=== PATIENT | female | born 1945 | race Caucasian/White ===

== ENCOUNTER → 2016-05-05 | Outpatient (CLI) | payer OTHER ==
[~2016-05-05] MED LIST: ACET-1138 PO; ALPR0.25 PO; ASPEC325 PO; CINN1CAP2 PO; FERR1TAB23 PO; FERR324T PO; HYDR25TA4 PO; LISI10TA PO; METF-384 PO; NSNN50; PARO20TA PO; POTA99TA PO; ROSU5TAB PO; SITA25TA PO; TRAM-10 PO; WARF1TAB PO; [UNRECOGNIZED DRUG - CODE] PO; lasix; mutivitamin PO
[2016-05-05 11:41] LABS: BASO % 0.4 %; BASO ABS # 0.04 K/uL (0-0.2); COMPLETE YES; EOS % 0.3 %; HEMATOCRIT 31.9 % (37-47); IG% 0.3 %; LYMPH % 13.1 %; LYMPH ABS # 1.47 K/uL (1.2-3.4); MEAN CELL VOLUME 84.2 fL (80-100); MEAN CORPUSCULAR HEMOGLOBIN 28.2 pg (25-34); MEAN CORPUSCULAR HGB CONC 33.5 g/dl (32-36); MEAN PLATELET VOLUME 9.9 fL (7.4-10.4); MONO % 9.5 %; NEUT % 76.4 %; PLATELET COUNT 323 K/uL (130-400); RED BLOOD COUNT 3.79 M/uL (4.2-5.4); WHITE BLOOD COUNT 11.24 K/uL (4.8-10.8)
[2016-05-05 11:55] LABS: SYNOVIAL FLUID APPEARANCE TURBID; SYNOVIAL FLUID COLOR YELLOW; SYNOVIAL FLUID MONONUC RELAT 3.5 %; SYNOVIAL FLUID POLYNUC RELAT 96.5 %
== END | disposition home or self-care (01) ==
LOC: C.LABBC 09:20
PROVIDERS: ATTEND Orthopaedic Surgery Sports Medicine
DX: T84.7XXA Infection and inflammatory reaction due to other internal orthopedic prosthetic devices, implants and grafts, initial encounter (principal); M25.562 Pain in left knee; Y83.1 Surgical operation with implant of artificial internal device as the cause of abnormal reaction of the patient, or of later complication, without mention of misadventure at the time of the procedure

== ENCOUNTER 2016-05-06 15:34 | Inpatient (IN) | payer OTHER ==
[~2016-05-06] VITALS: Ht 149.9 cm; Wt 70.9 kg
[~2016-05-06 15:34] MED LIST changes: -ACET-1138 PO; -ASPEC325 PO; -TRAM-10 PO; -[UNRECOGNIZED DRUG - CODE] PO
[2016-05-06] MEDS ORDERED: SODIUM CHLORIDE 0.9% 1000ML 1,000 ML IV SCH (16:08)
[2016-05-06] MEDS ORDERED: ZOLPIDEM TARTRATE 5 MG TAB PO PRN (16:15)
[2016-05-06] MEDS ORDERED: METOCLOPRAMIDE HCL INJ 5 MG/ML 2 ML VIAL IV PRN (16:15)
[2016-05-06] MEDS ORDERED: ALUMINUM/MAGNESIUM SUSP 30 ML UDC PO PRN (16:15)
[2016-05-06] MEDS ORDERED: MAGNESIUM HYDROXIDE SUSP 30 ML UDC PO PRN (16:15)
[2016-05-06] MEDS ORDERED: ONDANSETRON INJ 2 MG/ML 2 ML VIAL IV PRN (16:15)
[2016-05-06] MEDS ORDERED: ALPRAZOLAM 0.25 MG TAB PO PRN (16:15)
[2016-05-06] MEDS ORDERED: FERROUS SULFATE 325 MG TAB PO SCH (18:00)
[2016-05-06] MEDS ORDERED: FERROUS GLUCONATE 324 MG TAB PO SCH (18:00)
--- NOTE | 2016-05-06 19:06 | DIAGNOSTIC IMAGING REPORT ---
CHEST 2 VIEWS ROUTINE HISTORY: Pre-op COMPARISON: Chest 09/19/2012. FINDINGS: The lungs are clear. Cardiac silhouette is normal in size. No pleural effusions. No pneumothorax. IMPRESSION: No acute process. Electronically signed by: Avtar Farr M.D. 05/06/2016 7:04 PM Dictated Date/Time: 05/06/2016 7:03 PM
[2016-05-06 19:13] LABS: HEMATOCRIT 30.9 % (37-47); MEAN CELL VOLUME 82.6 fL (80-100); MEAN CORPUSCULAR HEMOGLOBIN 27.8 pg (25-34); MEAN CORPUSCULAR HGB CONC 33.7 g/dl (32-36); PLATELET COUNT 340 K/uL (130-400); RED BLOOD COUNT 3.74 M/uL (4.2-5.4); WHITE BLOOD COUNT 10.62 K/uL (4.8-10.8)
[2016-05-06 19:30] LABS: BLOOD UREA NITROGEN 23 mg/dl (7-18); BUN/CREATININE RATIO 30.5 (10-20); CALCIUM 9.5 mg/dl (8.5-10.1); CARBON DIOXIDE 30 mmol/L (21-32); CHLORIDE 91 mmol/L (98-107); CREATININE 0.74 mg/dl (0.60-1.20); GLUCOSE 159 mg/dl (70-99); POTASSIUM 3.5 mmol/L (3.5-5.1); SODIUM 133 mmol/L (136-145)
[2016-05-06 19:33] LABS: INR 0.9 (0.9-1.1); PROTHROMBIN TIME (PATIENT) 9.9 SECONDS (9.0-12.0)
[2016-05-06] MEDS ORDERED: GLUCOSE 40% GEL 15 GM TUBE PO PRN (20:45)
[2016-05-06] MEDS ORDERED: GLUCOSE 10 TABS/TUBE PO PRN (20:45)
[2016-05-06] MEDS ORDERED: DEXTROSE 50% 50 ML SYR IV PRN (20:45)
[2016-05-06] MEDS ORDERED: GLUCAGON FOR INJ 1 MG VIAL SQ PRN (20:45)
[2016-05-06] MEDS ORDERED: INSULIN HUMAN REGULAR SC SCH (21:00)
[2016-05-06] MEDS: DOCUSATE SODIUM 100 MG CAP PO SCH (21:37)
[2016-05-06 21:58] VITALS: BP 130/83; PULSE 96; TEMP 37.4; O2SAT 94; Ht 149.9 cm; Wt 70.9 kg
--- NOTE | 2016-05-06 22:03 | HISTORY & PHYSICAL EXAMINATION ---
DATE OF ADMISSION: 05/06/2016 CHIEF COMPLAINT: Acute knee pain after knee replacement surgery. HISTORY OF PRESENT ILLNESS: The patient is a 70-year-old female, from [facility], who is status post a left total knee replacement done on 10/29/2012. She has done well from this, has not had any problems at all. She works a regular job. On Monday morning, she just awoke with an acute onset of left knee pain and discomfort. There was no trauma. She has had to resort to using a walker to get around, for the first time. She also noticed some warmth and felt she had a bit of a fever. On Monday, she called in our office and we had seen her yesterday morning. We aspirated her knee. Cultures are growing Staph aureus. Interestingly, the crystal analysis showed some gout crystals as well. Of note, the patient did recently have dental work just last week. She did take prophylactic antibiotics beforehand. Once again, her knee has been functioning fine, not had any problems until just Monday. PAST MEDICAL HISTORY: 1. Diabetes x8+ years. 2. Hypertension. 3. Elevated cholesterol. 4. Obesity. 5. Anxiety. 6. Osteoarthritis. PAST SURGICAL HISTORY: Includes: 1. Tubal ligation. 2. Throat surgeries for sleep apnea. 3. Left total knee replacement done on 10/29/2012. ALLERGIES: SULFA AND LATEX. CURRENT MEDICINES: 1. Metformin. 2. Mobic. 3. Unspecified medicine. 4. Crestor. 5. Lisinopril. 6. Hydrochlorothiazide 7. Paxil. 8. Xanax. 9. Lasix. SOCIAL HISTORY: A 70-year-old female. She is from [place]. She is . She does take care of a disabled child. FAMILY HISTORY: Significant for heart disease, diabetes, blood clots, uterine cancer. REVIEW OF SYSTEMS: Review of systems is significant for diabetes for about 10 years or so. She does not recall how long. Denies any history of DVT or PE. No chest pain or shortness of breath. No cardiac disease. PHYSICAL EXAMINATION: GENERAL: Reveals a pleasant, jovial elderly female. She looks to be quite healthy. HEENT: Benign. NECK: Supple. No lymphadenopathy. LUNGS: Clear to auscultation. HEART: Regular rate and rhythm. ABDOMEN: Soft, nontender, nondistended. EXTREMITIES: Grossly neurovascularly intact, except as follows: Examination of the left knee and leg reveals a well-healed incision. There may be just a [id number] effusion. She can do a straight leg raise. Range of motion is 0-90 degrees. She is just tender to palpate around her knee. There is no instability. No pain with hip motion. X-RAYS: X-rays from our office were reviewed. It shows a left cemented posterior stabilized right total knee arthroplasty. Components looked to be in good position. No signs of problems. No signs of lucency. No signs of wear. LABORATORIES: Laboratory results reveal a white cell count of 10.62, which is normal. She does have anemia with a hemoglobin of 10.4, hematocrit of 30.9. The sed rate is 74. C-reactive protein 30. Her knee aspirate revealed 36,000 white cells with 96% polys and a 3%-4% mononuclear cells. Gram stain shows some gram-positive cocci. Cultures are significant for staph aureus. Synovasure testing is abnormal, suggestive of infection. ASSESSMENT: A 70-year-old female, now 3-1/2 years out from a left total knee replacement with acute onset of pain, discomfort and swelling, consistent with septic arthritis. Interestingly, she did have some gout crystals, which is one of the reasons we waited until the final culture results came back before washing her knee out, but it appears that there is clearly some degree of infection. This looks to be acute infection. She has not had any problems in the past and the implant looked well fixed. PLAN: The patient has been admitted to the hospital. She has had a medical workup and everything looks pretty much in order. We will have to take her to the operating room and do an irrigation and debridement, extensive synovectomy, polyethylene exchange. Seemingly, the implants are well fixed. We will do a polyethylene exchange and placed her on 6 weeks of IV antibiotics. Obviously, if the components are loose, we will have to place an antibiotic spacer. The risks and benefits of this procedure were explained to the patient, including, but not limited to, DVT, PE, , infection, neurological injury, vascular injury, bleeding problem, pain, limited range of motion, stiffness, failure to relieve symptoms, incomplete relief of symptoms, need for further surgery in the future, need for resection arthroplasty. The patient understands and desires to proceed. Informed consent was obtained. We will make her n.p.o. after midnight. We will begin DVT prophylaxis, including thigh-high TEDs and SCDs. GRETTA
[2016-05-06] MEDS ORDERED: VANCOMYCIN INJ 1,000 MG in SODIUM CHLORIDE 0.9% 250ML 250 ML IV STA (22:34)
[2016-05-06 23:17] VITALS: BP 111/73; PULSE 112; TEMP 38.4; O2SAT 96
[2016-05-07] VITALS (9 sets, daily range): BP systolic 116–164; BP diastolic 67–89; PULSE 90–110; TEMP 36.8–38; O2SAT 87–100
[2016-05-07] MEDS ORDERED: NURSING VERBAL MED ORDER ONE ×3 (00:30→20:45)
[2016-05-07] MEDS ORDERED: MoRPHine SULFATE 2 MG/ML CARP IV PRN ×2 (00:30→09:45)
[2016-05-07] MEDS ORDERED: NURSING DECISION MEDICATION ORDER SCH (01:15)
[2016-05-07] MEDS ORDERED: CEFAZOLIN 2000 MG/60 ML D5W 60 ML IV SCH (06:00)
[2016-05-07] MEDS ORDERED: CEFAZOLIN IV 2,000 MG/60 ML D5W IV ONE (06:00)
[2016-05-07] MEDS ORDERED: INSULIN HUMAN REGULAR SC SCH ×2 (06:00→12:00)
[2016-05-07] MEDS ORDERED: PROPOFOL IV EMULSION 10 MG/ML 20 ML VIAL IV ONE (06:52)
[2016-05-07] MEDS ORDERED: MIDAZOLAM HCL 1 MG/ML 2ML VIAL ONE (06:52)
[2016-05-07] MEDS ORDERED: ONDANSETRON INJ 2 MG/ML 2 ML VIAL ONE (06:52)
[2016-05-07] MEDS ORDERED: FENTANYL CITRATE INJ 50 MCG/1 ML 2 ML VIAL ONE (06:52)
[2016-05-07] MEDS ORDERED: GLYCOPYRROLATE INJ 0.2 MG/ML VIAL ONE (06:52)
[2016-05-07] MEDS ORDERED: LIDOCAINE HCL 2% 2 ML VIAL (20MG/ML) ONE (06:52)
[2016-05-07] MEDS ORDERED: ROCURONIUM BROMIDE 10 MG/ML 5 ML VIAL ONE (06:52)
[2016-05-07] MEDS ORDERED: NEOSTIGMINE METHYLSULFATE 5 MG/5 ML SYR ONE (06:52)
[2016-05-07] MEDS: DOCUSATE SODIUM 100 MG CAP PO SCH ×2 (07:14→20:59)
[2016-05-07] MEDS: PANTOprazole SOD 40 MG TAB PO SCH (07:15)
[2016-05-07] MEDS: ROSUVASTATIN CALCIUM 10 MG TAB PO SCH (07:15)
[2016-05-07] MEDS: HYDROCHLOROTHIAZIDE 25 MG TAB PO SCH (07:15)
[2016-05-07] MEDS: SITAGLIPTIN 25 MG TAB PO SCH (07:15)
[2016-05-07] MEDS: PAROXETINE 20 MG TAB PO SCH (07:15)
--- NOTE | 2016-05-07 07:22 | History & Physical Bridge Note ---
H&P Re-Evaluation Bridge Note: I have examined the patient, reviewed the History & Physical and in the interval since the performance of the History & Physical I have noted the following changes of clinical significance: No changes noted
[2016-05-07] MEDS ORDERED: EpHEDrine SULFATE INJ 50 MG/ML AMP IV PRN (07:30)
[2016-05-07] MEDS ORDERED: ATROPINE SULFATE 0.1 MG/ML 5ML SYR IV PRN (07:30)
[2016-05-07] MEDS ORDERED: ONDANSETRON INJ 2 MG/ML 2 ML VIAL IV PRN ×2 (07:30→09:45)
[2016-05-07] MEDS ORDERED: PHENYLEPHRINE 100MCG/ML 5ML SYR IV PRN (07:30)
[2016-05-07] MEDS ORDERED: HYDROmorphone INJ 2 MG/ML SYR/VIAL IV PRN (07:30)
[2016-05-07] MEDS ORDERED: MoRPHine SULFATE PF 1 MG/ML 10 ML AMP/VIAL ONE (07:49)
[2016-05-07] MEDS ORDERED: METOCLOPRAMIDE HCL INJ 5 MG/ML 2 ML VIAL ONE (08:04)
[2016-05-07] MEDS ORDERED: BACITRACIN 50000 UNIT VIAL IR ONE (08:35)
[2016-05-07] MEDS ORDERED: POVIDONE-IODINE OP SOLN 30 ML BTL TOP ONE (08:41)
[2016-05-07] MEDS ORDERED: ORM MISCELLANEOUS MED XX ONE (08:42)
[2016-05-07] MEDS ORDERED: BUPIVACAINE 0.25% 30 ML VIAL INJ ONE (09:09)
[2016-05-07] MEDS ORDERED: LABETALOL HCL IV 5 MG/ML 20ML ONE (09:10)
--- NOTE | 2016-05-07 09:39 | [facility] Post Operative Brief Note ---
Immediate Operative Summary Operative Date May 07, 2016. Pre-Operative Diagnosis Acute Left Knee Septic Arthritis after Total Knee Replacement Post-Operative Diagnosis Same Procedure(s) Performed Left total knee poly exchange, incision and drainage Surgeon Dr. Dioni Koenig Hand Washer Surgeon(s) None Estimated Blood Loss 50 mL Findings Septic TKR. Well-fixed components Fluids (cc crystalloids) 750 cc Specimens Microbiology #1: Left Knee Tissue/Swab Sent to lab STAT and 0820 for Routine C/S, Gram Stain, Anerobic/Aerobic, Fungal Permanent Specimens A: Explanted hardware, left knee Drains HMV Left Knee Complication(s) None Disposition Recovery Room / PACU
[2016-05-07] MEDS ORDERED: ALUMINUM/MAGNESIUM/SIMETH (MAALOX MAX) 30 ML UDC PO PRN (09:45)
[2016-05-07] MEDS ORDERED: DiphenhydrAMINE HCL 50 MG/ML VIAL IV PRN (09:45)
[2016-05-07] MEDS ORDERED: OXYCODONE HCL IR 5 MG TAB (IMMEDIATE RELEASE) PO PRN (09:45)
[2016-05-07] MEDS ORDERED: METOCLOPRAMIDE HCL INJ 5 MG/ML 2 ML VIAL IV PRN (09:45)
[2016-05-07] MEDS ORDERED: MAGNESIUM HYDROXIDE SUSP 30 ML UDC PO PRN (09:45)
[2016-05-07] MEDS ORDERED: BISACODYL 10 MG SUPP PR PRN (09:45)
[2016-05-07] MEDS ORDERED: ZOLPIDEM TARTRATE 5 MG TAB PO PRN (09:45)
[2016-05-07] MEDS ORDERED: VANCOMYCIN INJ 1,100 MG in SODIUM CHLORIDE 0.9% 250ML 250 ML IV SCH (11:00)
[2016-05-07] MEDS ORDERED: CEFAZOLIN SOD 1 GM VIAL ONE (11:17)
--- NOTE | 2016-05-07 11:17 | Anesthesiology Progress Note ---
Anesthesia Post Op Note Date & Time May 07, 2016 at 11:17 Vital Signs Pain Intensity: 0.0 Vital Signs Past 12 Hours Date Time Temp Pulse Resp B/P Pulse Ox O2 Delivery O2 Flow Rate FiO2 05/07/16 11:05 104 18 164/89 96 Nasal Cannula 2.0 05/07/16 10:35 100 Nasal Cannula 05/07/16 10:35 100 Nasal Cannula 2.0 05/07/16 10:30 37.2 103 20 154/78 98 Nasal Cannula 2.0 05/07/16 10:20 37.5 97 14 142/78 100 Nasal Cannula 2 05/07/16 10:10 100 14 154/90 100 Nasal Cannula 2 05/07/16 10:00 97 14 126/81 98 Nasal Cannula 2 05/07/16 09:50 100 16 139/78 98 Nasal Cannula 2 05/07/16 09:43 37.1 97 16 139/83 97 Nasal Cannula 2 05/07/16 07:07 37.9 110 20 146/74 97 Room Air 05/06/16 23:30 Room Air Notes Mental Status: alert / awake / arousable, participated in evaluation Pt Amnestic to Procedure: Yes Nausea / Vomiting: adequately controlled Pain: adequately controlled Airway Patency, RR, SpO2: stable & adequate BP & HR: stable & adequate Hydration State: stable & adequate Anesthetic Complications: no major complications apparent
[2016-05-07] MEDS: KETOROLAC TROMETHAMINE 15 MG/ML VIAL IV. SCH ×3 (11:26→22:33)
[2016-05-07] MEDS: SODIUM CHLORIDE 0.9% 1000ML 1,000 ML IV SCH ×2 (11:26→20:19)
[2016-05-07] MEDS ORDERED: VANCOMYCIN CONSULT ACTIVE PRN (12:30)
--- NOTE | 2016-05-07 12:36 | Pharmacy Progress Note ---
Pharmacy Antibiotic Consult Date of Service: May 07, 2016. Pharmacy Dosing Scope Pharmacy is consulted to initiate Vancomycin IV dosing therapy, order appropriate labs and adjust drug dose/frequency. Subjective The patient is a 70 year old female admitted on May 06, 2016 at 18:14. Objective Height (Feet): 4 Height (Inches): 11.00 Weight (Kilograms): 70.900 Lab Results (24hrs): Laboratory Tests Test 05/06/16 19:04 BUN/Creatinine Ratio 30.5 Blood Urea Nitrogen 23 mg/dl Creatinine 0.74 mg/dl White Blood Count 10.62 K/uL Micro Results: Item Value Date Time Gram Stain - Final Resulted 05/05/16 0934 Joint Fluid/Space (Synovial) Knee Left Gram Stain Received 05/07/16 0815 Tissue Knee Left Pending Fungal Smear Received 05/07/16 0815 Tissue Knee Left Pending OR AER/JULISA CULT Preliminary 05/07/16-1003 Organism 1 STAPHYLOCOCCUS AUREUS QUANITY MODERATE SENS SENSITIVITY TO FOLLOW 1. STAPHYLOCOCCUS AUREUS Target Route Dose RX AB Cost M.I.C. IQ ------ ----- ------ -- ------ -------- - ------ TRIMET/SULFA S <=0.5/ 9.5 * OXACILLIN S <=0.25 VANCOMYCIN S 2 ERYTHROMYCIN S <=0.5 TETRACYCLINE S <=4 CLINDAMYCIN S <=0.5 DAPTOMYCIN S <=0.5 Assessment & Plan Assessment * 70 y/o F with L knee septic arthritis on empiric IV Vancomycin. Hx L TKA 10/29. She underwent L total knee poly exchange, incision & drainage earlier this AM on 05/07/16. L synovial fluid culture from 05/05/16 (prior to admission) resulted with MSSA. Tissue cultures from today pending. ID has been consulted today (they have not seen the patient yet). Dr. Koenig was informed of outpatient culture growing MSSA. Patient also does not have any risk factors for MRSA. However, he does not want to de-escalate Vancomycin at this time. He is deferring antibiotic management to ID. * Patient with good renal function that appears to be at baseline. Most recent sCr = 0.74 mg/dL with estimated CrCl ~96 mL/min. Estimated pharmacokinetic parameters: * Ke ~0.084/hr * T1/2 ~8.2 hrs * Vd ~49.6 L * Patient received Vancomycin 1000mg (~15mg/kg) IV x 1 as a single dose on 05/06 @ 2301. Therefore will not give another loading dose at this time. Will promptly initiate maintenance regimen. Plan * Initiate Vancomycin 1100mg (~16mg/kg) IV q10 * Goal Vancomycin trough 15-20 mcg/mL * Trough level ordered for 05/08 @ 0630 (prior to the 3rd dose and therefore not reflective of steady state) Pharmacy will continue to follow and will adjust dose/frequency as necessary. Thank you
[2016-05-07] MEDS: FERROUS GLUCONATE 324 MG TAB PO SCH ×2 (12:54→17:25)
[2016-05-07] MEDS: ACETAMINOPHEN 500 MG TAB PO SCH ×2 (12:54→22:32)
--- NOTE | 2016-05-07 15:20 | Medical Consult ---
Consultation Date of Consultation: May 07, 2016. Attending Physician: Dioni Koenig M.D. Reason for Consultation: 6 weeks of Abx for septic TKA History of Present Illness 70-year-old female with history of diabetes mellitus, is status post remote left TKA. She was in usual state of health until 1 day prior to admission when she noted the sudden onset pain, swelling, and erythema of her left knee. This was associated with fever and chills. She sought Dr. Koenig and knee was aspirated and shows both Staph aureus as well as gout crystals. She has now been admitted and undergone surgical debridement with poly exchange. Operative cultures are pending. Currently being treated with vancomycin and rifampin. Feeling much better postoperatively with decrease in temperature, and control of knee pain. Past Medical/Surgical History PAST MEDICAL HISTORY: 1. Diabetes x8+ years. 2. Hypertension. 3. Elevated cholesterol. 4. Obesity. 5. Anxiety. 6. Osteoarthritis. PAST SURGICAL HISTORY: Includes: 1. Tubal ligation. 2. Throat surgeries for sleep apnea. 3. Left total knee replacement done on 10/29/2012. Family History Noncontributory Social History Smoking Status: Unknown if Ever Smoked Allergies Coded Allergies: Latex (Verified Allergy, Unknown, tongue got numb, itchy all over, 05/06/16 ) Sulfa Antibiotics (Verified Allergy, Unknown, "SULFA DRUGS": RED RASH, ) Current Inpatient Medications Current Inpatient Medications Medications (Trade) Dose Ordered Sig/Marisol Route Start Time Stop Time Status Last Admin Dose Admin Diphenhydramine HCl (Benadryl Cap) 25 mg Q8 PRN PO 05/06/16 16:15 06/05/16 16:14 Diphenhydramine HCl (Benadryl Inj) 25 mg Q8 PRN IV 05/06/16 16:15 06/05/16 16:14 Metoclopramide HCl (Reglan Inj) 10 mg Q6H PRN IV 05/06/16 16:15 06/05/16 16:14 Ondansetron HCl (Zofran Inj) 4 mg Q6H PRN IV 05/06/16 16:15 06/05/16 16:14 Al Hydroxide/Mg Hydroxide (Maalox Susp) 30 ml Q6H PRN PO 05/06/16 16:15 06/05/16 16:14 Docusate Sodium (coLACE CAP) 100 mg BID PO 05/06/16 21:00 06/05/16 20:59 05/06/16 21:37 100 MG Pantoprazole Sodium (Protonix Tab) 40 mg QAM PO 05/07/16 09:00 06/06/16 08:59 Magnesium Hydroxide (Milk Of Magnesia Susp) 30 ml Q6H PRN PO 05/06/16 16:15 06/05/16 16:14 Alprazolam (Xanax Tab) 0.25 mg DAILY PRN PO 05/06/16 16:15 06/05/16 16:14 Hydrochlorothiazide (Hydrochlorothiazide Tab) 25 mg DAILY PO 05/07/16 09:00 06/06/16 08:59 Paroxetine HCl (pAXil TAB) 20 mg DAILY PO 05/07/16 09:00 06/06/16 08:59 Rosuvastatin Calcium (Crestor Tab) 10 mg DAILY PO 05/07/16 09:00 06/06/16 08:59 Sitagliptin Phosphate (Januvia Tab) 25 mg DAILY PO 05/07/16 09:00 06/06/16 08:59 Glucose (Glucose 40% Gel) 15-30 GRAMS 15 GRAMS... UD PRN PO 05/06/16 20:45 06/05/16 20:44 Glucose (Glucose Chew Tab) 4-8 Tablets 4 Tabl... UD PRN PO 05/06/16 20:45 06/05/16 20:44 Dextrose (Dextrose 50% 50ML Syringe) 25-50ML OF 50% DW IV FOR... UD PRN IV 05/06/16 20:45 06/05/16 20:44 Glucagon (Glucagon Inj) 1 mg UD PRN SQ 05/06/16 20:45 06/05/16 20:44 Morphine Sulfate 2 mg 2 mg Q2H PRN IV 05/07/16 00:30 05/21/16 00:29 Sodium Chloride (Nss 1000ml) 1,000 ml @ 100 mls/hr Q10H IV 05/07/16 09:39 05/08/16 09:38 05/07/16 11:26 100 MLS/HR Oxycodone HCl (Roxicodone Immediate Rel Tab) 5 mg Q4H PRN PO 05/07/16 09:45 05/21/16 09:44 Acetaminophen (Tylenol Tab) 1,000 mg Q8 PO 05/07/16 14:00 06/06/16 13:59 05/07/16 12:54 1,000 MG Bisacodyl (Dulcolax Supp) 10 mg DAILY PRN AK 05/07/16 09:45 06/06/16 09:44 Zolpidem Tartrate (Ambien Tab) 5 mg HSZ PRN PO 05/07/16 09:45 06/06/16 09:44 Multivitamins (Multivitamin Tab) 1 tab QAM PO 05/08/16 09:00 06/07/16 08:59 Ferrous Gluconate (Ferrous Gluconate Tab) 324 mg TIDM PO 05/07/16 12:30 06/06/16 12:29 05/07/16 12:54 324 MG Aspirin (Ecotrin Tab) 325 mg BID PO 05/07/16 21:00 06/06/16 20:59 Tapentadol (Nucynta Er Tab) 50 mg Q12 PO 05/07/16 21:00 06/06/16 20:59 Ketorolac Tromethamine 15 mg 15 mg Q6H IV. 05/07/16 11:00 05/09/16 10:59 05/07/16 11:26 15 MG Vancomycin HCl/ Sodium Chloride (Vancomycin Inj/ Nss 250ml) 272 ml @ 125 mls/hr Q10H IV 05/07/16 11:00 06/06/16 10:59 05/07/16 11:25 125 MLS/HR Insulin Human Regular (novoLIN-R) SLIDING SCALE ACHS SC 05/07/16 12:00 06/06/16 11:59 05/07/16 12:58 2 UNITS Vancomycin HCl (Consult) 1 ea UD PRN N/A 05/07/16 12:30 06/06/16 12:29 Rifampin (Rifadin Cap) 150 mg BID PO 05/07/16 21:00 06/18/16 20:59 Review of Systems Constitutional: + chills, + fever Eyes: No problem reported ENT: No problem reported Respiratory: No problem reported Cardiovascular: No problem reported Abdomen: No problem reported Musculoskeletal: + joint pain, + swelling Genitourinary - Female: No problem reported Neurologic: No problem reported Psychiatric: No problem reported Endocrine: No problem reported Hematologic / Lymphatic: No problem reported Integumentary: No problem reported Allergic / Immunologic: No problem reported Physical Exam Date Time Temp Pulse Resp B/P Pulse Ox O2 Delivery O2 Flow Rate FiO2 05/07/16 13:58 37.1 104 16 116/68 99 Nasal Cannula 2.0 05/07/16 12:35 36.9 107 18 146/69 96 Nasal Cannula 2.0 05/07/16 11:34 38.0 95 16 120/87 97 Nasal Cannula 2.0 05/07/16 11:05 104 18 164/89 96 Nasal Cannula 2.0 05/07/16 10:35 100 Nasal Cannula 05/07/16 10:35 100 Nasal Cannula 2.0 05/07/16 10:30 37.2 103 20 154/78 98 Nasal Cannula 2.0 05/07/16 10:20 37.5 97 14 142/78 100 Nasal Cannula 2 05/07/16 10:10 100 14 154/90 100 Nasal Cannula 2 05/07/16 10:00 97 14 126/81 98 Nasal Cannula 2 05/07/16 09:50 100 16 139/78 98 Nasal Cannula 2 05/07/16 09:43 37.1 97 16 139/83 97 Nasal Cannula 2 05/07/16 07:07 37.9 110 20 146/74 97 Room Air 05/06/16 23:30 Room Air 05/06/16 23:17 38.4 112 15 111/73 96 Room Air 05/06/16 21:58 37.4 96 16 130/83 94 Room Air General Appearance: WD/WN, no apparent distress Head: normocephalic, atraumatic Eyes: normal inspection, EOMI, sclerae normal ENT: normal ENT inspection, hearing grossly normal, pharynx normal Neck: supple, no adenopathy, thyroid normal, trachea midline Respiratory/Chest: chest non-tender, lungs clear, normal breath sounds, no respiratory distress Cardiovascular: regular rate, rhythm, no gallop, no murmur Abdomen/GI: normal bowel sounds, non tender, soft, no organomegaly Back: normal inspection, no CVA tenderness Extremities/Musculoskelatal: no calf tenderness, normal capillary refill Neurologic/Psych: alert, normal mood/affect, oriented x 3 Skin: normal color, no rash, + pertinent finding (surical dressing intact left leg) Lymphatic: no adenopathy Laboratory Results Date/Time Source Procedure Growth Status 05/07/16 08:15 Tissue Knee Left Fungal Smear Pending Received 05/07/16 08:15 Tissue Knee Left Fungal Culture Pending Received 05/07/16 08:15 Tissue Knee Left Gram Stain Pending Received 05/07/16 08:15 Tissue Knee Left Bacterial Culture Pending Received Last 24 Hours Test 05/06/16 19:04 05/07/16 06:19 05/07/16 09:55 05/07/16 11:41 White Blood Count 10.62 K/uL Red Blood Count 3.74 M/uL Hemoglobin 10.4 g/dL Hematocrit 30.9 % Mean Corpuscular Volume 82.6 fL Mean Corpuscular Hemoglobin 27.8 pg Mean Corpuscular Hemoglobin Concent 33.7 g/dl RDW Standard Deviation 40.4 fL RDW Coefficient of Variation 13.2 % Platelet Count 340 K/uL Mean Platelet Volume 9.0 fL Prothrombin Time 9.9 SECONDS Prothromb Time International Ratio 0.9 Sodium Level 133 mmol/L Potassium Level 3.5 mmol/L Chloride Level 91 mmol/L Carbon Dioxide Level 30 mmol/L Anion Gap 12.0 mmol/L Blood Urea Nitrogen 23 mg/dl Creatinine 0.74 mg/dl Estimated GFR () 96.5 Estimated GFR (Non- 83.2 BUN/Creatinine Ratio 30.5 Random Glucose 159 mg/dl Calcium Level 9.5 mg/dl Hepatitis C Antibody Screen NEG Bedside Glucose 160 mg/dl 156 mg/dl 184 mg/dl Assessment & Plan 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 Have changed vancomycin to cefazolin for now, and would continue rifampin. Will likely change to once-daily daptomycin or ceftriaxone to allow easier outpatient therapy. Will need 6 weeks IV RX, likely followed by lifelong suppressive therapy. Will follow.
[2016-05-07] MEDS: CEFAZOLIN IV 2,000 MG in DEXTROSE 5% 50ML 50 ML IV SCH ×2 (16:21→23:41)
[2016-05-07] MEDS: INSULIN ASPART 100 UNITS/ML 3 ML PEN SC SCH ×2 (17:15→20:58)
[2016-05-07] MEDS: DiphenhydrAMINE HCL 50 MG/ML VIAL IV PRN ×2 (18:32→19:05)
--- NOTE | 2016-05-07 19:33 | Progress Note ---
Subjective Date of Service: May 07, 2016. Subjective Pt evaluation today including: conversation w/ patient, physical exam, chart review, lab review, review of inpatient medication list asked to see in regards to DM management. chart reviewed. labs reviewed. current sugars reviewed. she notes at home she takes metformin and januvia, fasting sugars usually ~100, checks 2hr postprandial - usually 130 range. last A1c ~6.7. just had one checked last week but hasn't gotten most up to date results yet Review of Systems ros otherwise negative except for as above Objective Vital Signs Date Time Temp Pulse Resp B/P Pulse Ox O2 Delivery O2 Flow Rate FiO2 05/07/16 15:15 Room Air 05/07/16 15:00 36.8 90 18 137/67 94 Room Air 05/07/16 13:58 37.1 104 16 116/68 99 Nasal Cannula 2.0 05/07/16 12:35 36.9 107 18 146/69 96 Nasal Cannula 2.0 05/07/16 12:35 36.9 107 16 146/69 96 Nasal Cannula 2.0 05/07/16 11:34 38.0 95 16 120/87 97 Nasal Cannula 2.0 05/07/16 11:05 104 18 164/89 96 Nasal Cannula 2.0 05/07/16 11:05 104 16 164/89 96 Nasal Cannula 2.0 05/07/16 10:35 100 Nasal Cannula 05/07/16 10:35 100 Nasal Cannula 2.0 05/07/16 10:30 37.2 103 20 154/78 98 Nasal Cannula 2.0 05/07/16 10:20 37.5 97 14 142/78 100 Nasal Cannula 2 05/07/16 10:10 100 14 154/90 100 Nasal Cannula 2 05/07/16 10:00 97 14 126/81 98 Nasal Cannula 2 05/07/16 09:50 100 16 139/78 98 Nasal Cannula 2 05/07/16 09:43 37.1 97 16 139/83 97 Nasal Cannula 2 05/07/16 07:07 37.9 110 20 146/74 97 Room Air 05/06/16 23:30 Room Air 05/06/16 23:17 38.4 112 15 111/73 96 Room Air 05/06/16 21:58 37.4 96 16 130/83 94 Room Air Physical Exam General Appearance: no apparent distress Eyes: EOMI ENT: hearing grossly normal Neck: trachea midline Respiratory/Chest: no respiratory distress, no accessory muscle use Extremities: normal range of motion Neurologic/Psychiatric: 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, alert, normal mood/affect Skin: normal color, warm/dry Laboratory Results Last 24 Hours Test 05/07/16 06:19 05/07/16 09:55 05/07/16 11:41 05/07/16 17:00 Bedside Glucose 160 mg/dl 156 mg/dl 184 mg/dl 137 mg/dl Assessment and Plan DM2 -appearing overall well controlled, and today's sugars inpt appear well controlled for risk -on januvia and metformin at home - ortho has ordered januvia - will continue this for now, follow overall status, as long as clear no volume status issues, likely resume metformin tomorrow - continue to follow sugars closely, start sliding scale supplemental w goal 140-180. ask for records for most recent A1c since just drawn last week. suspect overall good degree of control, however.
[2016-05-07] MEDS: ASPIRIN 325 MG ECTAB PO SCH (20:58)
[2016-05-07] MEDS: TAPENTADOL ER 50 MG TABCR PO SCH (20:59)
[2016-05-07] MEDS: RIFAMPIN 150 MG CAP PO SCH (20:59)
[2016-05-07] MEDS ORDERED: DOCUSATE SODIUM 100 MG CAP PO SCH (21:00)
[2016-05-07] MEDS ORDERED: BENZOCAINE 20% (ORAJEL) 11.9 GM TUBE MT PRN (21:15)
[2016-05-08 03:43] VITALS: BP 155/71; PULSE 91; TEMP 36.9; O2SAT 99
[2016-05-08] MEDS: ACETAMINOPHEN 500 MG TAB PO SCH ×3 (05:52→21:32)
[2016-05-08] MEDS: KETOROLAC TROMETHAMINE 15 MG/ML VIAL IV. SCH ×4 (05:53→22:30)
[2016-05-08] MEDS: SODIUM CHLORIDE 0.9% 1000ML 1,000 ML IV SCH (05:58)
[2016-05-08] MEDS ORDERED: VANCOMYCIN TROUGH ONE (06:30)
[2016-05-08 06:41] LABS: HEMATOCRIT 25.7 % (37-47); MEAN CELL VOLUME 82.9 fL (80-100); MEAN CORPUSCULAR HEMOGLOBIN 27.4 pg (25-34); MEAN CORPUSCULAR HGB CONC 33.1 g/dl (32-36); MEAN PLATELET VOLUME 8.6 fL (7.4-10.4); PLATELET COUNT 322 K/uL (130-400); WHITE BLOOD COUNT 6.34 K/uL (4.8-10.8)
[2016-05-08 07:08] VITALS: BP 136/80; PULSE 88; TEMP 36.8; O2SAT 100
[2016-05-08 07:16] LABS: BUN/CREATININE RATIO 19.2 (10-20); CALCIUM 8.4 mg/dl (8.5-10.1); CREATININE 0.66 mg/dl (0.60-1.20); POTASSIUM 3.4 mmol/L (3.5-5.1)
[2016-05-08] MEDS: CEFAZOLIN IV 2,000 MG in DEXTROSE 5% 50ML 50 ML IV SCH ×2 (07:42→16:41)
--- NOTE | 2016-05-08 07:54 | Progress Note ---
Subjective Date of Service: May 08, 2016. Subjective Pt evaluation today including: conversation w/ patient, physical exam, chart review, lab review, review of inpatient medication list feeling ok overall. no lightheaded/weak, no dizzy, no sob. was worried about Hgb being lower than yesterday but no notable blood loss of significance Review of Systems Respiratory: No shortness of breath Cardiac: No chest pain ros otherwise negative except for as above Objective Vital Signs Date Time Temp Pulse Resp B/P Pulse Ox O2 Delivery O2 Flow Rate FiO2 05/08/16 07:08 36.8 88 17 136/80 100 Nasal Cannula 2.0 05/08/16 03:43 36.9 91 16 155/71 99 Room Air 05/07/16 23:40 Nasal Cannula 2.0 05/07/16 23:05 37.1 104 16 136/75 87 Room Air 05/07/16 15:15 Room Air 05/07/16 15:00 36.8 90 18 137/67 94 Room Air 05/07/16 13:58 37.1 104 16 116/68 99 Nasal Cannula 2.0 05/07/16 12:35 36.9 107 18 146/69 96 Nasal Cannula 2.0 05/07/16 12:35 36.9 107 16 146/69 96 Nasal Cannula 2.0 05/07/16 11:34 38.0 95 16 120/87 97 Nasal Cannula 2.0 05/07/16 11:05 104 18 164/89 96 Nasal Cannula 2.0 05/07/16 11:05 104 16 164/89 96 Nasal Cannula 2.0 05/07/16 10:35 100 Nasal Cannula 05/07/16 10:35 100 Nasal Cannula 2.0 05/07/16 10:30 37.2 103 20 154/78 98 Nasal Cannula 2.0 05/07/16 10:20 37.5 97 14 142/78 100 Nasal Cannula 2 05/07/16 10:10 100 14 154/90 100 Nasal Cannula 2 05/07/16 10:00 97 14 126/81 98 Nasal Cannula 2 05/07/16 09:50 100 16 139/78 98 Nasal Cannula 2 05/07/16 09:43 37.1 97 16 139/83 97 Nasal Cannula 2 Physical Exam General Appearance: no apparent distress Eyes: EOMI ENT: hearing grossly normal Neck: trachea midline Respiratory/Chest: no respiratory distress, no accessory muscle use 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, alert, normal mood/affect Skin: normal color, warm/dry Laboratory Results Last 24 Hours Test 05/07/16 09:55 05/07/16 11:41 05/07/16 17:00 05/07/16 20:41 Bedside Glucose 156 mg/dl 184 mg/dl 137 mg/dl 168 mg/dl Test 05/08/16 06:30 05/08/16 07:43 White Blood Count 6.34 K/uL Red Blood Count 3.10 M/uL Hemoglobin 8.5 g/dL Hematocrit 25.7 % Mean Corpuscular Volume 82.9 fL Mean Corpuscular Hemoglobin 27.4 pg Mean Corpuscular Hemoglobin Concent 33.1 g/dl RDW Standard Deviation 41.4 fL RDW Coefficient of Variation 13.6 % Platelet Count 322 K/uL Mean Platelet Volume 8.6 fL Sodium Level 139 mmol/L Potassium Level 3.4 mmol/L Chloride Level 101 mmol/L Carbon Dioxide Level 30 mmol/L Anion Gap 8.0 mmol/L Blood Urea Nitrogen 13 mg/dl Creatinine 0.66 mg/dl Est Creatinine Clear Calc Drug Dose 69.9 ml/min Estimated GFR () 105.2 Estimated GFR (Non- 90.8 BUN/Creatinine Ratio 19.2 Random Glucose 150 mg/dl Calcium Level 8.4 mg/dl Assessment and Plan DM2 -appearing overall well controlled, and inpt sugars appearing controlled for risk -on januvia and metformin at home - creatinine has been stable. will resume metformin and follow -has supplemental insulin via sliding scale- should she need this regularly we' d want to transition to basal bolus, but this seems unlikely -just had A1c checked last week - will ask for records hypocalcemia -this + DM2 - will check vitamin D level hypokalemia -replete anemia -dilution + lab variation -- no evidence of acute blood loss anemia. f/u CBC in AM DVT proph -per orthopedics (currently compression)
--- NOTE | 2016-05-08 08:27 | PROGRESS NOTE ---
DATE: 05/08/2016 SUBJECTIVE: A 70-year-old white female postop day 1 from an I & D and a poly exchange for a septic left knee replacement. She is doing better. Pain is much improved. Denies any chest pain or shortness of breath. Not feeling dizzy or lightheaded. OBJECTIVE: VITAL SIGNS: Temperature 36.8. Vital signs stable. PHYSICAL EXAMINATION: GENERAL: Reveals a pleasant elderly female. She was in the bathroom when I visited with her today. She is awake, alert and oriented. LUNGS: Clear to auscultation. HEART: Has regular rate and rhythm. ABDOMEN: Soft, nontender, nondistended. EXTREMITIES: Grossly neurovascularly intact except as follows: Examination of the left lower extremity reveals the dressing to be clean, dry and intact. She can dorsiflex and plantarflex her foot appropriately. She is neurologically intact. CULTURE RESULTS: Culture results from the left knee tissue reveal Staph aureus. Previous cultures from in the office revealed methicillin sensitive Staph. ASSESSMENT: A 70-year-old female postoperative day 1 from incision and drainage of a septic total knee replacement. This is an acute infection. It is growing out Staph aureus for multiple cultures. It is methicillin sensitive. PLAN: We are going to continue IV antibiotics. We will plan on 6 weeks of IV antibiotics, but will await Infectious Disease final recommendations. She will likely require 6 months of p.o. antibiotics after that. We also added some rifampin. She is anemic, but asymptomatic. Will continue iron supplementation. Continue DVT prophylaxis including thigh-high TEDs, SCDs, and aspirin. We will get a PICC line placed. Discharge will be to home with some home health, likely for IV antibiotics, once everything is stable and sorted out medically. GRETTA
[2016-05-08] MEDS ORDERED: POTASSIUM CHLORIDE 10 MEQ TABCR PO ONE (08:30)
[2016-05-08] MEDS ORDERED: PANTOprazole SOD 40 MG TAB PO SCH (09:00)
[2016-05-08] MEDS: ASPIRIN 325 MG ECTAB PO SCH ×2 (09:43→21:37)
[2016-05-08] MEDS: RIFAMPIN 150 MG CAP PO SCH ×2 (09:43→21:37)
[2016-05-08] MEDS: ROSUVASTATIN CALCIUM 10 MG TAB PO SCH (09:43)
[2016-05-08] MEDS: DOCUSATE SODIUM 100 MG CAP PO SCH ×2 (09:43→21:36)
[2016-05-08] MEDS: SITAGLIPTIN 25 MG TAB PO SCH (09:44)
[2016-05-08] MEDS: PAROXETINE 20 MG TAB PO SCH (09:44)
[2016-05-08] MEDS: HYDROCHLOROTHIAZIDE 25 MG TAB PO SCH (09:44)
[2016-05-08] MEDS: PANTOprazole SOD 40 MG TAB PO SCH (09:44)
[2016-05-08] MEDS: MULTIVITAMIN TAB PO SCH (09:45)
[2016-05-08] MEDS: FERROUS GLUCONATE 324 MG TAB PO SCH ×3 (09:46→18:22)
[2016-05-08] MEDS: TAPENTADOL ER 50 MG TABCR PO SCH ×2 (09:52→21:36)
[2016-05-08] MEDS: INSULIN ASPART 100 UNITS/ML 3 ML PEN SC SCH ×4 (10:00→21:31)
[2016-05-08] MEDS ORDERED: ASPEC325 PO (13:14)
[2016-05-08] MEDS ORDERED: TRAM-10 PO (13:14)
[2016-05-08] MEDS ORDERED: [UNRECOGNIZED DRUG - CODE] PO (13:14)
[2016-05-08] MEDS ORDERED: ACET-1138 PO (13:14)
--- NOTE | 2016-05-08 13:17 | Discharge Instructions ---
Discharge Instructions Admission Reason for Admission: Infected Total Knee Discharge Discharge Diagnosis / Problem: Left Knee Infection Discharge Goals Goal(s): Decrease discomfort, Improve function, Increase independence, Improve disease control, Therapeutic intervention Activity Recommendations Activity Limitations: per Instructions/Follow-up section Weightbearing Status: Left weightbearing . Instructions / Follow-Up Instructions / Follow-Up ACTIVITY RECOMMENDATIONS: Physical Therapy: * You will go to physical therapy three times each week for four to six weeks after your surgery in order to regain your knee range of motion and to retrain your knee to work properly. * It is just as important to make sure you are getting your knee perfectly straight as it is to regain your knee bend. * Taking a pain pill an hour before therapy can help you have a more productive and comfortable therapy session. Home Exercise: * You were shown a series of exercises (heel props, heel slides, etc.) in the hospital. Do these exercises three to four times each day including the exercises you were shown in physical therapy. Walking: * Get up and walk several times each day. For the first four weeks, try not to stand or walk for more than one hour at a time. If you do stand or walk for more than one hour, you will not hurt anything, but your knee and leg will likely swell. * As you feel comfortable, you may change from the walker or crutches to a cane and then to independent walking. MEDICATIONS: New Medicine: * You will likely be taking one or more of these medications: 1. Tramadol - A quick and shorter-acting pain medication. Take one to two tablets every four to six hours to lessen your pain. 2. Iron Sulfate - Take two times each day for the month after surgery to help you replace the blood lost during surgery. 3. Aspirin - Thins your blood to lessen the chance of forming a blood clot. * The most common side effects of pain medicine and iron are nausea and constipation. If nausea or constipation is too much of a problem or if you have any questions about your new medicines or doses, call [facility] at . We will try to help you manage these issues. VERY IMPORTANT TO READ AND REVIEW" Pain: * The immediate post-operative period after knee replacement surgery is often quite painful. * You are given a prescription for pain medicine. You should take it, as directed, when you need it, especially before physical therapy and before going to bed. Pain that interferes with sleep is very common and can last several months. * You will likely need pain medicine for the first four to six weeks. It will not stop all of the pain. The pain will lessen and as you feel better, you may change to milder pain medicine such as Tylenol. * The most common side effects of pain medicine are nausea and constipation, so don't take more than you need. SPECIAL CARE INSTRUCTIONS: TEDs/Elastic Stockings: * The white elastic stockings help limit swelling and prevent blood clots from forming in your legs. The more you wear them, the more they work. * Wear them for six weeks after knee replacement surgery and four weeks after partial knee replacement. Prevention of Infection: * Take antibiotics one hour before any dental cleaning, dental work, urological procedure, gastrointestinal procedure or any invasive surgery in order to prevent your new joint from getting infected. * You may get the antibiotics from the doctor performing the procedure or you may call our office at before and we will call in a prescription to the pharmacy of your choice. Things to Watch For: * Drainage from the incision site that occurs more than one week after your surgery. * Severely increased knee/leg pain or swelling. * Increased redness at the incision site. * Fever above 102 degrees Fahrenheit. * Unusual chest pain or shortness of breath. * Unusual pain or burning with urination. Call [facility] at with any of the above problems or if you have any questions about your medicines or recovery. FOLLOW UP VISIT: Make an appointment to see your doctor for approximately two weeks after surgery for a progress check and staple removal by calling the office at . Current Hospital Diet Patient's current hospital diet: Diabetes Type 2 Diet Discharge Diet Recommended Diet: Diabetes Type 2 Diet Procedures Procedures Performed: Left total knee poly exchange, incision and drainage Pending Studies Studies pending at discharge: no Medical Emergencies . Who to Call and When: Medical Emergencies: If at any time you feel your situation is an emergency, please call [phone] immediately. . Non-Emergent Contact Non-Emergency issues call your: Surgeon . "Provider Documentation" section prepared by Dioni Koenig. VTE Core Measure Inpt VTE Proph given/why not?: Other Anticoagulation, T.E.D. Stockings, SCD's
[2016-05-08] MEDS ORDERED: PSYLLIUM 58.6% PWD PACK S\\F PO PRN (14:45)
[2016-05-08] MEDS ORDERED: HYDROCORTISONE 1% CR 30 GM TUBE EXT PRN (14:45)
[2016-05-08 15:22] VITALS: BP 144/78; PULSE 95; TEMP 37; O2SAT 98
[2016-05-08] MEDS ORDERED: TRAMADOL HCL 50 MG TAB PO PRN (15:45)
[2016-05-08] MEDS: METFORMIN HCL 500 MG TAB PO SCH (18:22)
[2016-05-08] MEDS ORDERED: RIFAMPIN 150 MG CAP PO SCH (21:00)
[2016-05-08] MEDS ORDERED: ALPRAZOLAM 0.25 MG TAB PO PRN (22:15)
[2016-05-08 23:59] VITALS: BP 167/77; PULSE 111; TEMP 36.7; O2SAT 95
[2016-05-09] MEDS: CEFAZOLIN IV 2,000 MG in DEXTROSE 5% 50ML 50 ML IV SCH ×2 (00:42→07:41)
[2016-05-09 01:06] VITALS: O2SAT 84; O2SAT 94
[2016-05-09] MEDS: KETOROLAC TROMETHAMINE 15 MG/ML VIAL IV. SCH (05:44)
[2016-05-09] MEDS: ACETAMINOPHEN 500 MG TAB PO SCH ×2 (05:44→12:41)
[2016-05-09 05:49] VITALS: BP 156/88; PULSE 104; TEMP 36.8; O2SAT 94
[2016-05-09 06:23] LABS: HEMATOCRIT 26.2 % (37-47)
[2016-05-09 06:57] LABS: BUN/CREATININE RATIO 18.8 (10-20); CALCIUM 8.4 mg/dl (8.5-10.1); CREATININE 0.64 mg/dl (0.60-1.20); POTASSIUM 3.3 mmol/L (3.5-5.1)
--- NOTE | 2016-05-09 07:06 | OPERATIVE REPORT ---
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 POSTOPERATIVE DIAGNOSIS: Same. PROCEDURE PERFORMED: Irrigation and debridement and polyethylene exchange, left total knee arthroplasty. SURGEON: Dioni Koenig M.D. COMPLICATIONS: None. ESTIMATED BLOOD LOSS: 50 mL. FLUID REPLACEMENT: 750 mL crystalloid fluid replacement. ANESTHESIA: General anesthesia. SPECIMENS: Left knee fluid sent for stat gram stain, aerobic, anaerobic culture and left knee synovium sent for tissue culture. COMPLICATIONS: None. TOURNIQUET TIME: 53 minutes at 300 mmHg. OPERATIVE INDICATIONS: The patient is a 70-year-old female now 3-1/2 years out from a left knee replacement. She had done well and on Monday morning of this week she just woke up with the acute onset of pain and discomfort in her left knee. She has not had any problems up to this point. She was seen in clinic at the end of the week, had knee aspiration. X-rays were pristine without signs of loosening or bone destruction. The knee aspirate revealed 36,000 white cells and grew out Staph aureus. The Synovasure testing was also positive. Interesting, the joint fluid, also, showed Gout crystal present. The patient indicated for irrigation and debridement and hopeful retention of the components. OPERATION AND FINDINGS: OPERATIVE FINDINGS: Operative findings revealed inflammatory effusion. She did not have much scarring or synovitis or thickening of scar tissue around the knee replacement. Her components were well fixed. No signs of significant wear. OPERATIVE PROCEDURE: The patient taken to the operating room, identified and placed on operative table in supine position. All contact areas were appropriately padded. We did elect to give her antibiotics. She got 2 grams of Ancef prior to incision and then we started her on some vancomycin. A general anesthetic was implemented by anesthesia team. A left thigh tourniquet was then placed and left lower extremity was then prepped and draped in the usual sterile fashion. The left leg was elevated. A tourniquet was placed at 300 mmHg. We did not exsanguinate the leg. An anterior approach to the left knee was then performed using the previous incision. Sharp dissection was carried through the subcutaneous tissues down to the level of the extensor mechanism. A medial parapatellar arthrotomy incision was made. Some subperiosteal dissection was carried out medially. We did send some fluid off for stat gram stain, aerobic and anaerobic culture. Extensive synovectomy was then performed including both the suprapatellar pouch, medial, and lateral gutters. The synovium was sent off for tissue culture. I did pretty extensive exposure in order to allow us to visualize all aspects of the knee. I then removed the polyethylene. I debrided the back of the knee as well of all synovium. I used a curet to define the edges of the implant to try and gain access. Once adequate debridement was performed, I proceeded with irrigation. The knee was irrigated with 500 mL full strength Dakin solution. I then took a scrub brush and scrubbed the components extensively. We let the Dakin solution sit in the knee for 3 minutes. I then irrigated this out with 3 liters of pulsatile lavage solution. We then took a solution of Betadine combined with normal saline and irrigated the wound again. I once again scrubbed the components with a scrub brush. We let the Betadine solution in the knee for an additional 3 minutes. I then irrigated this with 3 liters of pulsatile lavage solution. We then placed a new drape over the knee. The suction tip, pulsatile lavage, and cautery were changed. New instruments were used. I then irrigated the wound again with 3 liters of pulsatile lavage solution. I then placed a new 10 mm polyethylene insert. The tourniquet was then let down for final tourniquet time of 53 minutes. Hemostasis was assured with use of electrocautery. The 2 Hemovac drains were placed in the depth of the wound. The extensor mechanism was then closed with #1 PDS suture in a [id number] fashion. The subcutaneous tissues were then closed with 2-0 Dexon suture in a buried interrupted fashion. Skin was closed with skin rik. The leg was then cleaned and dried and a sterile dressing composed with Xeroform, 4 x 4, sterile cast padding and an Nabeel bandage were applied. The patient was then brought out of general anesthesia and transferred to the recovery room in stable condition. The patient tolerated the procedure well with no complications. All needle and sponge counts were correct at the end of the operation. I attest to the content of the Intraoperative Record and any orders documented therein. Any exceptions are noted below. GRETTA
[2016-05-09] MEDS: SITAGLIPTIN 25 MG TAB PO SCH (07:25)
[2016-05-09] MEDS: PAROXETINE 20 MG TAB PO SCH (07:25)
[2016-05-09] MEDS: METFORMIN HCL 500 MG TAB PO SCH (07:25)
[2016-05-09] MEDS: FERROUS GLUCONATE 324 MG TAB PO SCH ×2 (07:25→12:41)
[2016-05-09] MEDS: ROSUVASTATIN CALCIUM 10 MG TAB PO SCH (07:25)
[2016-05-09] MEDS: DOCUSATE SODIUM 100 MG CAP PO SCH (07:26)
[2016-05-09] MEDS: RIFAMPIN 150 MG CAP PO SCH (07:26)
[2016-05-09] MEDS: HYDROCHLOROTHIAZIDE 25 MG TAB PO SCH (07:26)
[2016-05-09] MEDS: MULTIVITAMIN TAB PO SCH (07:26)
[2016-05-09] MEDS: PANTOprazole SOD 40 MG TAB PO SCH (07:27)
[2016-05-09] MEDS: INSULIN ASPART 100 UNITS/ML 3 ML PEN SC SCH ×2 (07:28→12:41)
[2016-05-09] MEDS: ASPIRIN 325 MG ECTAB PO SCH (07:28)
--- NOTE | 2016-05-09 07:36 | PROGRESS NOTE ---
DATE: 05/09/2016 SUBJECTIVE: A 70-year-old female postop day 2 from I\T\D and poly exchange for an acute septic knee after knee replacement. She is doing much better. Really not have much pain. Denies any chest pain or shortness of breath. Not feeling dizzy or lightheaded. OBJECTIVE: VITAL SIGNS: Temperature is 36.8. Vital signs stable. PHYSICAL EXAMINATION: GENERAL: Reveals a healthy, pleasant elderly female. She is sitting up in her bedside chair and she looks comfortable. LUNGS: Clear to auscultation. HEART: Regular rate and rhythm. ABDOMEN: Soft, nontender, nondistended. EXTREMITIES: Grossly neurovascularly intact except as follows: Examination of the left lower extremity reveals the dressing to be clean, dry and intact. Really not much in the way of swelling. She can dorsiflex and plantarflex her foot appropriately. She is neurologically intact. LABORATORY DATA: Hemoglobin is 8.6, hematocrit 26.2. Electrolytes are stable. Potassium is still a little bit low at 3.3. ASSESSMENT: A 70-year-old female postop day 2 from incision and drainage of a septic left knee. Cultures are growing out methicillin sensitive Staphylococcus. She is currently on Ancef. Also, on rifampin. PLAN: 1. DVT prophylaxis including thigh-high TEDs, SCDs, and aspirin twice a day. 2. PT/OT. As tolerated. Left total knee protocol. 3. Pain control. Doing well with current pain regimen. 4. Infection. She is currently on the rifampin and Ancef. I believe this plan is to change her to a 24-hour antibiotic. We will leave that up to the infectious disease team. 5. Disposition: She is orthopedically stable and hopefully can be discharged today. She has got a PICC in place. She will need some home health.
[2016-05-09] MEDS: TAPENTADOL ER 50 MG TABCR PO SCH (07:41)
[2016-05-09] MEDS ORDERED: POTASSIUM CHLORIDE 10 MEQ TABCR PO ONE (08:00)
--- NOTE | 2016-05-09 08:23 | Anesthesiology Progress Note ---
Anesthesia Post Op Note Date & Time May 09, 2016 at 08:23 Vital Signs Pain Intensity: 0.0 Vital Signs Past 12 Hours Date Time Temp Pulse Resp B/P Pulse Ox O2 Delivery O2 Flow Rate FiO2 05/09/16 05:49 36.8 104 16 156/88 94 Room Air 05/09/16 01:06 94 Nasal Cannula 3.0 05/09/16 00:25 Room Air 05/08/16 23:59 36.7 111 16 167/77 95 Room Air Notes Mental Status: alert / awake / arousable, participated in evaluation Pt Amnestic to Procedure: Yes Nausea / Vomiting: adequately controlled Pain: adequately controlled Airway Patency, RR, SpO2: stable & adequate BP & HR: stable & adequate Hydration State: stable & adequate Anesthetic Complications: no major complications apparent
[2016-05-09] MEDS ORDERED: ALPRAZOLAM 0.25 MG TAB PO PRN (09:00)
--- NOTE | 2016-05-09 09:37 | Infectious Disease Progress Nt ---
Progress Note Date of Service May 09, 2016. Subjective Pt evaluation today including: conversation w/ patient, physical exam, chart review, lab review, review of studies, conversation w/ wellness consultant, review of inpatient medication list Episode of N+V after breakfast, now better. Otherwise feeling better. No fever. OR cultures with MSSA. All Other Systems: Reviewed and Negative Medications Current Inpatient Medications Medications (Trade) Dose Ordered Sig/Marisol Route Start Time Stop Time Status Last Admin Dose Admin Diphenhydramine HCl (Benadryl Cap) 25 mg Q8 PRN PO 05/06/16 16:15 06/05/16 16:14 05/08/16 14:49 25 MG Diphenhydramine HCl (Benadryl Inj) 25 mg Q8 PRN IV 05/06/16 16:15 06/05/16 16:14 05/07/16 19:05 25 MG Metoclopramide HCl (Reglan Inj) 10 mg Q6H PRN IV 05/06/16 16:15 06/05/16 16:14 Ondansetron HCl (Zofran Inj) 4 mg Q6H PRN IV 05/06/16 16:15 06/05/16 16:14 Al Hydroxide/Mg Hydroxide (Maalox Susp) 30 ml Q6H PRN PO 05/06/16 16:15 06/05/16 16:14 Docusate Sodium (coLACE CAP) 100 mg BID PO 05/06/16 21:00 06/05/16 20:59 05/09/16 07:26 100 MG Pantoprazole Sodium (Protonix Tab) 40 mg QAM PO 05/07/16 09:00 06/06/16 08:59 05/09/16 07:27 40 MG Magnesium Hydroxide (Milk Of Magnesia Susp) 30 ml Q6H PRN PO 05/06/16 16:15 06/05/16 16:14 Hydrochlorothiazide (Hydrochlorothiazide Tab) 25 mg DAILY PO 05/07/16 09:00 06/06/16 08:59 05/09/16 07:26 25 MG Paroxetine HCl (pAXil TAB) 20 mg DAILY PO 05/07/16 09:00 06/06/16 08:59 05/09/16 07:25 20 MG Rosuvastatin Calcium (Crestor Tab) 10 mg DAILY PO 05/07/16 09:00 06/06/16 08:59 05/09/16 07:25 10 MG Sitagliptin Phosphate (Januvia Tab) 25 mg DAILY PO 05/07/16 09:00 06/06/16 08:59 05/09/16 07:25 25 MG Glucose (Glucose 40% Gel) 15-30 GRAMS 15 GRAMS... UD PRN PO 05/06/16 20:45 06/05/16 20:44 Glucose (Glucose Chew Tab) 4-8 Tablets 4 Tabl... UD PRN PO 05/06/16 20:45 06/05/16 20:44 Dextrose (Dextrose 50% 50ML Syringe) 25-50ML OF 50% DW IV FOR... UD PRN IV 05/06/16 20:45 06/05/16 20:44 Glucagon (Glucagon Inj) 1 mg UD PRN SQ 05/06/16 20:45 06/05/16 20:44 Morphine Sulfate (MoRPHine SULFATE INJ) 2 mg Q2H PRN IV 05/07/16 00:30 05/21/16 00:29 Oxycodone HCl (Roxicodone Immediate Rel Tab) 5 mg Q4H PRN PO 05/07/16 09:45 05/21/16 09:44 Acetaminophen (Tylenol Tab) 1,000 mg Q8 PO 05/07/16 14:00 06/06/16 13:59 05/08/16 05:52 1,000 MG Bisacodyl (Dulcolax Supp) 10 mg DAILY PRN VT 05/07/16 09:45 06/06/16 09:44 Zolpidem Tartrate (Ambien Tab) 5 mg HSZ PRN PO 05/07/16 09:45 06/06/16 09:44 Multivitamins (Multivitamin Tab) 1 tab QAM PO 05/08/16 09:00 06/07/16 08:59 05/09/16 07:26 1 TAB Ferrous Gluconate (Ferrous Gluconate Tab) 324 mg TIDM PO 05/07/16 12:30 06/06/16 12:29 05/09/16 07:25 324 MG Aspirin (Ecotrin Tab) 325 mg BID PO 05/07/16 21:00 06/06/16 20:59 05/09/16 07:28 325 MG Tapentadol (Nucynta Er Tab) 50 mg Q12 PO 05/07/16 21:00 06/06/16 20:59 05/09/16 07:41 50 MG Ketorolac Tromethamine (Toradol Inj) 15 mg Q6H IV. 05/07/16 11:00 05/09/16 10:59 05/09/16 05:44 15 MG Rifampin 150 mg 150 mg BID PO 05/07/16 21:00 06/18/16 20:59 05/09/16 07:26 150 MG Cefazolin Sodium/ Dextrose (Ancef Iv/D5 50ml) 60 ml @ 100 mls/hr Q8@0000,0800,1600 IV 05/07/16 16:00 06/06/16 15:59 05/09/16 07:41 100 MLS/HR Insulin Aspart (novoLOG ASPART) SLIDING SCALE G... ACHS SC 05/07/16 17:15 06/06/16 17:14 Benzocaine (Orajel 2% Oral Gel) 1 appln UD PRN MT 05/07/16 21:15 06/06/16 21:14 05/07/16 22:31 1 APPLN Hydrocortisone (Hydrocortisone 1% Crm) 1 appln TID PRN EXT 05/08/16 14:45 06/07/16 14:44 05/08/16 16:41 1 APPLN Psyllium Hydrophilic Mucilloid (Metamucil Powder) 1 pkt DAILY PRN PO 05/08/16 14:45 06/07/16 14:44 Heparin Sodium (Porcine) (Heparin 10 Unit/ ml 5 ml Flush) 5 ml PRN PRN FLUSH 05/08/16 14:45 06/07/16 14:44 05/09/16 05:55 5 ML Metformin HCl (Glucophage Tab) 1,000 mg BIDM PO 05/08/16 17:45 06/07/16 17:44 05/09/16 07:25 1,000 MG Alprazolam (Xanax Tab) 0.125 mg BID PRN PO 05/08/16 22:15 06/08/16 08:59 05/08/16 22:30 0.125 MG Objective Vital Signs Date Time Temp Pulse Resp B/P Pulse Ox O2 Delivery O2 Flow Rate FiO2 05/09/16 05:49 36.8 104 16 156/88 94 Room Air 05/09/16 01:06 94 Nasal Cannula 3.0 05/09/16 00:25 Room Air 05/08/16 23:59 36.7 111 16 167/77 95 Room Air 05/08/16 15:45 Room Air 05/08/16 15:22 37.0 95 18 144/78 98 Room Air Physical Exam General Appearance: WD/WN, no apparent distress Eyes: normal inspection, EOMI, sclerae normal ENT: normal ENT inspection, pharynx normal Neck: supple, no adenopathy, trachea midline Respiratory/Chest: chest non-tender, lungs clear, normal breath sounds, no respiratory distress Cardiovascular: regular rate, rhythm, no gallop, no murmur Abdomen: normal bowel sounds, non tender, soft, no organomegaly Extremities: non-tender, no calf tenderness, normal capillary refill Neurologic/Psychiatric: alert, normal mood/affect, oriented x 3 Skin: normal color, no rash, + pertinent finding (surgical dressing intact) Laboratory Results RUN DATE: 05/09/16 [facility] LAB PAGE 1 RUN TIME: 0650 Specimen Inquiry PATIENT: RASHI SHEPARD I LOC: [facility] U # : [id number] AGE/SX: 70/F ROOM: [facility] REG : 05/06/[address]: Dioni Koenig M.D. : 1945 BED: 2 DIS : STATUS: ADM IN TLOC: SPEC #: [id number] EAMON: 05/07/16 STATUS: RES REQ #: [id number] RECD: 05/07/[address]: Dioni Koenig M.D. SOURCE: TISSUE ENTR: 05/07/[address] [facility] [address]: Eric Harman SPDESC: KNEE LEFT ORDERED: AER/JULISA CULTSMR Procedure Result Verified Site GRAM STAIN Final 05/08/16 RESULT MODERATE WBCs SEEN FEW GRAM POSITIVE COCCI OR AER/JULISA CULT Preliminary 05/09/16 Organism 1 STAPHYLOCOCCUS AUREUS QUANITY FEW SENS SENSITIVITY TO FOLLOW 1. STAPHYLOCOCCUS AUREUS Target Route Dose RX AB Cost M.I.C. IQ ------ ----- ------ -- ------ -------- - ------ TRIMET/SULFA S <=0.5/ 9.5 * OXACILLIN S <=0.25 VANCOMYCIN S 2 ERYTHROMYCIN S <=0.5 TETRACYCLINE S <=4 CLINDAMYCIN S <=0.5 DAPTOMYCIN S <=0.5 S = SENSITIVE I = INTERMEDIATE R = RESISTANT Last 24 Hours Test 05/08/16 11:50 05/08/16 16:30 05/08/16 20:27 05/09/16 05:10 Bedside Glucose 182 mg/dl 103 mg/dl 141 mg/dl Hemoglobin 8.6 g/dL Hematocrit 26.2 % Sodium Level 138 mmol/L Potassium Level 3.3 mmol/L Chloride Level 98 mmol/L Carbon Dioxide Level 30 mmol/L Anion Gap 10.0 mmol/L Blood Urea Nitrogen 12 mg/dl Creatinine 0.64 mg/dl Est Creatinine Clear Calc Drug Dose 72.1 ml/min Estimated GFR () 106.3 Estimated GFR (Non- 91.7 BUN/Creatinine Ratio 18.8 Random Glucose 129 mg/dl Calcium Level 8.4 mg/dl Test 05/09/16 07:06 Bedside Glucose 125 mg/dl Assessment and Plan 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 She will need 6 weeks of IV Rx, will change to ceftriaxone 2 grams daily for easier outpatient administration. Baseline ESR,CRP ordered. Would like to see in office in ~ 2 weeks after discharge.
[2016-05-09 15:16] VITALS: BP 156/88; PULSE 104; TEMP 36.8; O2SAT 94
[2016-05-09] MEDS ORDERED: CEFTRIAXONE SOD INJ 2,000 MG in DEXTROSE 5% 50ML 50 ML IV SCH (16:00)
--- NOTE | 2016-05-09 16:13 | Family Medicine Progress Note ---
Progress Note Date of Service May 09, 2016. Subjective Pt evaluation today including: conversation w/ patient, physical exam, chart review, lab review No acute overnight event. Patient tolerated surgery well. Tolerating PT/OT well. She states that her left knee pain has improved. She vomit today in the morning after having sausage. States she is feeling fine now. Denies dizziness, weakness, SOB, chest pain, nausea, vomiting, abdominal pain, dysuria, hematuria , melena, hematochezia, or any other additional problems. Constitutional: No chills, No fever, No weight loss Respiratory: No cough, No dyspnea on exertion, No shortness of breath, No wheezing Cardiovascular: No chest pain Abdomen: No GI bleeding, No constipation, No diarrhea, No nausea, No pain, No vomiting Female : No dysuria, No hematuria Medications Current Inpatient Medications Medications (Trade) Dose Ordered Sig/Marisol Route Start Time Stop Time Status Last Admin Dose Admin Diphenhydramine HCl (Benadryl Cap) 25 mg Q8 PRN PO 05/06/16 16:15 06/05/16 16:14 05/08/16 14:49 25 MG Diphenhydramine HCl (Benadryl Inj) 25 mg Q8 PRN IV 05/06/16 16:15 06/05/16 16:14 05/07/16 19:05 25 MG Metoclopramide HCl (Reglan Inj) 10 mg Q6H PRN IV 05/06/16 16:15 06/05/16 16:14 Ondansetron HCl (Zofran Inj) 4 mg Q6H PRN IV 05/06/16 16:15 06/05/16 16:14 05/09/16 09:43 4 MG Al Hydroxide/Mg Hydroxide (Maalox Susp) 30 ml Q6H PRN PO 05/06/16 16:15 06/05/16 16:14 Docusate Sodium (coLACE CAP) 100 mg BID PO 05/06/16 21:00 06/05/16 20:59 05/09/16 07:26 100 MG Pantoprazole Sodium (Protonix Tab) 40 mg QAM PO 05/07/16 09:00 06/06/16 08:59 05/09/16 07:27 40 MG Magnesium Hydroxide (Milk Of Magnesia Susp) 30 ml Q6H PRN PO 05/06/16 16:15 06/05/16 16:14 Hydrochlorothiazide (Hydrochlorothiazide Tab) 25 mg DAILY PO 05/07/16 09:00 06/06/16 08:59 05/09/16 07:26 25 MG Paroxetine HCl (pAXil TAB) 20 mg DAILY PO 05/07/16 09:00 06/06/16 08:59 05/09/16 07:25 20 MG Rosuvastatin Calcium (Crestor Tab) 10 mg DAILY PO 05/07/16 09:00 06/06/16 08:59 05/09/16 07:25 10 MG Sitagliptin Phosphate (Januvia Tab) 25 mg DAILY PO 05/07/16 09:00 06/06/16 08:59 05/09/16 07:25 25 MG Glucose (Glucose 40% Gel) 15-30 GRAMS 15 GRAMS... UD PRN PO 05/06/16 20:45 06/05/16 20:44 Glucose (Glucose Chew Tab) 4-8 Tablets 4 Tabl... UD PRN PO 05/06/16 20:45 06/05/16 20:44 Dextrose (Dextrose 50% 50ML Syringe) 25-50ML OF 50% DW IV FOR... UD PRN IV 05/06/16 20:45 06/05/16 20:44 Glucagon (Glucagon Inj) 1 mg UD PRN SQ 05/06/16 20:45 06/05/16 20:44 Morphine Sulfate (MoRPHine SULFATE INJ) 2 mg Q2H PRN IV 05/07/16 00:30 05/21/16 00:29 Oxycodone HCl (Roxicodone Immediate Rel Tab) 5 mg Q4H PRN PO 05/07/16 09:45 05/21/16 09:44 Acetaminophen (Tylenol Tab) 1,000 mg Q8 PO 05/07/16 14:00 06/06/16 13:59 05/08/16 05:52 1,000 MG Bisacodyl (Dulcolax Supp) 10 mg DAILY PRN NM 05/07/16 09:45 06/06/16 09:44 Zolpidem Tartrate (Ambien Tab) 5 mg HSZ PRN PO 05/07/16 09:45 06/06/16 09:44 Multivitamins (Multivitamin Tab) 1 tab QAM PO 05/08/16 09:00 06/07/16 08:59 05/09/16 07:26 1 TAB Ferrous Gluconate (Ferrous Gluconate Tab) 324 mg TIDM PO 05/07/16 12:30 06/06/16 12:29 05/09/16 12:41 324 MG Aspirin (Ecotrin Tab) 325 mg BID PO 05/07/16 21:00 06/06/16 20:59 05/09/16 07:28 325 MG Tapentadol (Nucynta Er Tab) 50 mg Q12 PO 05/07/16 21:00 06/06/16 20:59 05/09/16 07:41 50 MG Rifampin (Rifadin Cap) 150 mg BID PO 05/07/16 21:00 06/18/16 20:59 05/09/16 07:26 150 MG Insulin Aspart (novoLOG ASPART) SLIDING SCALE G... ACHS SC 05/07/16 17:15 06/06/16 17:14 Benzocaine (Orajel 2% Oral Gel) 1 appln UD PRN MT 05/07/16 21:15 06/06/16 21:14 05/07/16 22:31 1 APPLN Hydrocortisone (Hydrocortisone 1% Crm) 1 appln TID PRN EXT 05/08/16 14:45 06/07/16 14:44 05/08/16 16:41 1 APPLN Psyllium Hydrophilic Mucilloid (Metamucil Powder) 1 pkt DAILY PRN PO 05/08/16 14:45 06/07/16 14:44 Heparin Sodium (Porcine) (Heparin 10 Unit/ ml 5 ml Flush) 5 ml PRN PRN FLUSH 05/08/16 14:45 06/07/16 14:44 05/09/16 14:07 5 ML Metformin HCl (Glucophage Tab) 1,000 mg BIDM PO 05/08/16 17:45 06/07/16 17:44 05/09/16 07:25 1,000 MG Alprazolam 0.125 mg 0.125 mg BID PRN PO 05/08/16 22:15 06/08/16 08:59 05/08/16 22:30 0.125 MG Ceftriaxone Sodium/Dextrose (Rocephin Inj/D5 50ml) 70 ml @ 100 mls/hr Q24H IV 05/09/16 16:00 06/08/16 15:59 05/09/16 12:55 100 MLS/HR Objective Vital Signs Date Time Temp Pulse Resp B/P Pulse Ox O2 Delivery O2 Flow Rate FiO2 05/09/16 15:16 36.8 104 16 94 Room Air 05/09/16 07:57 Room Air 05/09/16 05:49 36.8 104 16 156/88 94 Room Air 05/09/16 01:06 94 Nasal Cannula 3.0 05/09/16 00:25 Room Air 05/08/16 23:59 36.7 111 16 167/77 95 Room Air Physical Exam General Appearance: no apparent distress Neck: supple, trachea midline Respiratory/Chest: chest non-tender, lungs clear, no respiratory distress Cardiovascular: regular rate, rhythm, no edema Abdomen: normal bowel sounds, non tender, soft Extremities: no pedal edema, + pertinent finding (dressing is intact on the left knee, no erythema or discharge was noted. ) Neurologic/Psychiatric: alert, normal mood/affect, oriented x 3 Skin: normal color, warm/dry Laboratory Results Results Past 24 Hours Test 05/08/16 16:30 05/08/16 20:27 05/09/16 05:10 05/09/16 07:06 Range/Units Bedside Glucose 103 141 125 70-90 mg/dl Hemoglobin 8.6 12.0-16.0 g/dL Hematocrit 26.2 37-47 % Erythrocyte Sedimentation Rate 63 0-21 mm/hr Sodium Level 138 136-145 mmol/L Potassium Level 3.3 3.5-5.1 mmol/L Chloride Level 98 98-107 mmol/L Carbon Dioxide Level 30 21-32 mmol/L Anion Gap 10.0 3-11 mmol/L Blood Urea Nitrogen 12 7-18 mg/dl Creatinine 0.64 0.60-1.20 mg/dl Est Creatinine Clear Calc Drug Dose 72.1 ml/min Estimated GFR () 106.3 Estimated GFR (Non- 91.7 BUN/Creatinine Ratio 18.8 10-20 Random Glucose 129 70-99 mg/dl Calcium Level 8.4 8.5-10.1 mg/dl C-Reactive Protein 21.30 0-0.29 mg/dl Test 05/09/16 12:26 Range/Units Bedside Glucose 127 70-90 mg/dl Assessment and Plan This is a 70 y/o female presented to hospital with acute left septic knee arthritis. We were consulted to manage her DM and post op care. 1. DM type 2 - Patient's glucose has been controlled ( 141--> 125 --> 127 last reading) - Continue with home dose of metformin 1000mg BID - Should follow up with PCP 2. HTN - Her blood pressure was on the higher side (156/88) - At this time wouldn't recommend to change the medication. Continue with home medication HCTZ 25mg daily - Recommend to check BP at home and if needed f/u with PCP 3. Hypocalcemia - Patient has low vitamin D level - Need to be on Vit D supplement, can be manage as outpatient 4. Hypokalemia -replete. Patient received 40 meq of potassium chloride today am. 5. Anemia - Patient had low hgb level (8.6). It could be dilution, also could be due to post surgery. There is no evidence of acute blood loss anemia. - Recommend to follow up with PCP History Resident Physician Supervision Note: I was present with Dr. Castro during the history and exam. I discussed the case with the resident and agree with the findings and plan as documented in the note. Any exceptions or clarifications are listed here Pt seen and examined at bedside. Mild ache of the knee c/w procedure which is well controlled. Reviewed diet with patient - regular fried foods (romansh fries ) and ice cream (though sugar free). Is unwilling to change these practices in her life despite sibling w/ significantly more severe DMII. Reports no CP/SOB, lightheadedness, numbness/tingling, nausea, bowel changes. General Appearance: WD/WN, no apparent distress Respiratory: chest non-tender, lungs clear, normal breath sounds, no respiratory distress Cardiovascular: normal peripheral pulses, regular rate, rhythm, no edema, no murmur Gastrointestinal: normal bowel sounds, non tender, soft, no organomegaly Assessment/Plan 70 y/o female h/o HTN and DMII s/p debridement and cleaning of septic knee consulted for DMII management DMII - presently well controlled, though I have concerns re: her chronic dietary indiscretions which I have advised her against. Resume home medications on discharge and follow w/ PCP. HTN - elevated over 150/90 threshold - 2/2 pain v. need for greater control. Would encourage close follow up as outpt and adjust. Continue HCTZ Electrolyte abnormalities - replete potassium Low vit D - rec outpatient supplementation 1000 IU daily Anemia - stable 24 hours postoperatively. Would recheck as outpatient.
--- NOTE | 2016-05-10 10:21 | EDITING REQUIRED CODING QUERY ---
DEBRIDEMENT DOCUMENTATION Dr. Koenig, To promote full compliance with coding requirements relating to patient care, physician participation is requested in all cases of retail cosmetics sales beauty advisor uncertainty. Please assist us with the question(s) below: Please place an X in the parenthesis (x). If other, please document the finding: Type of Debridement: (X) Excisional Debridement- Cutting away necrotic, devitalized tissue or slough to the level of viable tissue using a sharp instrument (i.e. scalpel, scissors, etc.) ( ) Non Excisional Debridement- The removal of necrotic, devitalized tissue or slough by means of scraping, mechanical brushing, flushing, or washing (i.e. irrigation,whirlpool);minor removal of loose fragments. ( ) Other (please specify): Instrument Used: ( ) Scissors ( ) Scalpel ( ) Curette (X) Other (please specify): Cautery Description of Tissue Removed: ( ) Necrotic ( ) Devitalized ( ) Non-Viable (X) Other (please specify): Infected synovial tissue Thank you Scott Cool
--- NOTE | 2016-05-17 15:23 | DISCHARGE SUMMARY ---
ADMITTING PHYSICIAN AND SURGEON: Dr. Koenig. ADMITTING DIAGNOSIS: Acute left septic knee after total knee replacement. PROCEDURE PERFORMED: Irrigation, debridement and polyethylene exchange of left total knee replacement. DATE OF PROCEDURE: 05/07/2016. SECONDARY DIAGNOSES: Include diabetes, hypertension, elevated cholesterol, obesity, anxiety, osteoarthritis. CONSULTS: 1. Dr. Moody for postoperative medical management and diabetic management. 2. Dr. Chen for infectious disease service. HISTORY AND PHYSICAL EXAMINATION: Well documented in the patient's chart. HOSPITAL COURSE: The patient was admitted on 05/06/2016 with a septic left total knee after previous total knee replacement. The following day on 05/07/2016 she underwent I\T\D and poly exchange. She tolerated the procedure well. There were no complications. She was transferred to the PACU postoperatively and later to the orthopedic floor for further care. She was given Ancef initially postoperatively and eventually antibiotics were changed to rifampin. She had intraoperative cultures, Gram stain and cultures obtained which showed a few gram positive cocci and grew out methicillin-sensitive staph aureus. Again the infectious disease service and hospitalist service was consulted and followed her throughout her hospital stay as well. She did receive a PICC line for outpatient IV antibiotics. Her hemoglobin, hematocrit and vital signs were monitored during her hospital stay and remained stable. She did develop some postoperative anemia with a hemoglobin down to 8.5. She did not receive any blood transfusions. By postoperative day 2, she was tolerating a diabetic diet. Pain was controlled with oral pain medicine. She was participating in physical therapy and had no signs or symptoms of deep vein thrombosis. On postop day 2, she was discharged home in good condition, set up with home health services. She was given printed discharge instructions including prescriptions for Extra-Strength Tylenol, aspirin 325 mg b.i.d., rifampin 150 mg b.i.d. and Ultram. She will continue her home medications with the exception of Coumadin which was stopped. She will continue IV antibiotics with ceftriaxone 2 grams daily and follow up with Dr. Chen as an outpatient about 2 weeks. Continue weightbearing as tolerated, FAVIOLA stockings and follow up with Dr. Koenig in 10-12 days or sooner if there are problems or concerns.
== END 2016-05-09 16:00 | disposition home health service (06) | DRG 464 ==
LOC: C.MSN 18:14
PROVIDERS: ADMIT Orthopaedic Surgery Sports Medicine; ATTEND Orthopaedic Surgery Sports Medicine
PROC: 0JBP0ZZ Excision of Left Lower Leg Subcutaneous Tissue and Fascia, Open Approach (ICD-10-PCS; principal; 2016-05-07 07:30)
PROC: 0SPD09Z Removal of Liner from Left Knee Joint, Open Approach (ICD-10-PCS; principal; 2016-05-07 07:30)
PROC: 0SUD09Z Supplement Left Knee Joint with Liner, Open Approach (ICD-10-PCS; principal; 2016-05-07 07:30)
PROC: 3E10X8Z Irrigation of Skin and Mucous Membranes using Irrigating Substance (ICD-10-PCS; principal; 2016-05-07 07:30)
DX: T84.54XA Infection and inflammatory reaction due to internal left knee prosthesis, initial encounter (principal); M00.9 Pyogenic arthritis, unspecified; E11.9 Type 2 diabetes mellitus without complications; I10 Essential (primary) hypertension; E78.00 Pure hypercholesterolemia, unspecified; B95.61 Methicillin susceptible Staphylococcus aureus infection as the cause of diseases classified elsewhere; E66.9 Obesity, unspecified; F41.9 Anxiety disorder, unspecified; Y83.1 Surgical operation with implant of artificial internal device as the cause of abnormal reaction of the patient, or of later complication, without mention of misadventure at the time of the procedure; E83.51 Hypocalcemia; E87.6 Hypokalemia; D64.9 Anemia, unspecified; Z68.31 Body mass index [BMI] 31.0-31.9, adult; Z98.890 Other specified postprocedural states; Z83.3 Family history of diabetes mellitus; Z82.49 Family history of ischemic heart disease and other diseases of the circulatory system; Z80.49 Family history of malignant neoplasm of other genital organs; Z79.84 Long term (current) use of oral hypoglycemic drugs; Z79.899 Other long term (current) drug therapy; T84.7XXA Infection and inflammatory reaction due to other internal orthopedic prosthetic devices, implants and grafts, initial encounter; M25.562 Pain in left knee

== ENCOUNTER → 2016-07-22 | Outpatient (CLI) | payer OTHER ==
[~2016-07-22] MED LIST changes: +ACET-1138 PO; +ASPEC325 PO; -WARF1TAB PO; +[UNRECOGNIZED DRUG - CODE] PO
[2016-07-22 14:53] LABS: HEMATOCRIT 36.2 % (37-47); MEAN CELL VOLUME 80.3 fL (80-100); MEAN CORPUSCULAR HEMOGLOBIN 25.9 pg (25-34); MEAN CORPUSCULAR HGB CONC 32.3 g/dl (32-36); MEAN PLATELET VOLUME 9.2 fL (7.4-10.4); PLATELET COUNT 399 K/uL (130-400); RED BLOOD COUNT 4.51 M/uL (4.2-5.4); WHITE BLOOD COUNT 7.14 K/uL (4.8-10.8)
== END | disposition home or self-care (01) ==
LOC: C.LABBC 10:15
PROVIDERS: ATTEND Orthopaedic Surgery Sports Medicine
DX: T84.59XS Infection and inflammatory reaction due to other internal joint prosthesis, sequela (principal); Y83.1 Surgical operation with implant of artificial internal device as the cause of abnormal reaction of the patient, or of later complication, without mention of misadventure at the time of the procedure

== ENCOUNTER 2018-06-20 07:46 | Inpatient (IN) ==
--- NOTE | 2018-06-15 15:45 | Anesthesiology Consultation ---
Date of Service June 15, 2018 Assessment & Plan (1) Encounter for pre-operative examination: - Check BSG AM DOS Chart Review Chart Review: Acceptable Risk for Surgery (PENDING PREOP LABS) and Patient NOT seen in Pre Admission Testing History Surgery Operation Date: 06/20/18 10:55 Proposed Procedures p Left Revision Total Knee Antibiotic Spacer Removal - Dioni Koenig MD Height/Weight Height: 4 ft 11 in Weight: 64.864 kg Allergies Allergy/AdvReac Type Severity Reaction Status Date / Time fish derived Allergy Intermediate Swelling Verified 06/01/18 11:29 of the Eye,LIPS latex Allergy Unknown TONGUE Verified 06/01/18 10:59 NUMBNESS, PRURITIS Sulfa (Sulfonamide Allergy Unknown Rash Verified 06/01/18 10:59 Antibiotics) morphine AdvReac N/V Verified 06/01/18 10:59 Medications Home Medications Medication Instructions Recorded Confirmed Last Taken alprazolam [Xanax] 0.25 mg PO BID PRN 04/13/18 06/01/18 Unknown cinnamon bark [Cinnamon] 2 tab PO QPM 04/13/18 06/01/18 04/15/18 23:55 clotrimazole-betamethasone 1 applic TOPICAL BID PRN 04/13/18 06/01/18 04/19/18 08:00 furosemide 10 mg PO QPM 04/13/18 06/01/18 04/19/18 23:45 iron 28 mg PO BID 04/13/18 06/01/18 04/19/18 23:45 lisinopril 5 - 10 mg PO QAM 04/13/18 06/01/18 04/19/18 12:00 meloxicam 15 mg PO QPM 04/13/18 06/01/18 04/15/18 23:55 metformin 1,000 mg PO BID 04/13/18 06/01/18 04/19/18 23:45 multivitamin 1 tab PO QPM 04/13/18 06/01/18 04/19/18 23:45 niacin 500 mg PO QPM 04/13/18 06/01/18 04/19/18 23:45 paroxetine HCl 20 mg PO QAM 04/13/18 06/01/18 04/19/18 12:00 potassium 6 tab PO QPM 04/13/18 06/01/18 04/19/18 23:45 rosuvastatin 5 mg PO QAM 04/13/18 06/01/18 04/19/18 12:00 ondansetron 1 tab PO DAILY PRN 04/16/18 06/01/18 Unknown acetaminophen [Tylenol Extra 1,000 mg PO Q6H PRN 06/01/18 06/01/18 Unknown Strength] aspirin [Ecotrin Low Strength] 81 mg PO QAM 06/01/18 06/01/18 Unknown calcium carbonate [Calcium 600] 1 tab PO QAM 06/01/18 06/01/18 Unknown ferrous sulfate 325 mg PO BID 06/01/18 06/01/18 Unknown tramadol 50 mg PO Q6H PRN 06/01/18 06/01/18 Unknown Past Medical History Medical History Anemia CHRONIC; PCP MONITORING Anxiety Diabetes NIDDM History of revision of total replacement of left knee joint LEFT KNEE POLYEXCHANGE LEFT KNEE HARDWARE REMOVAL, SPACER PLACEMENT= 04/20/18= LMA#4 AT [facility] Hx of sleep apnea S/P UPPP Hyperlipidemia Hypertension Infection of left knee REASON FOR PROCEDURE Kidney stones Obesity Osteoarthritis Past Family History Family History Aunt Family history of diabetes mellitus Father Family history of diabetes mellitus Mother Family history of diabetes mellitus Sister Family history of diabetes mellitus Past Surgical History Surgical History History of anesthesia reaction SLOW TO WAKE UP X 1 EPISODE; NO ISSUE WITH MOST RECENT SURGERY History of total left knee replacement 2011 History of uvulopalatopharyngoplasty Hx of colonoscopy Hx of tubal ligation Nausea and vomiting after administration of anesthetic agent Social History Smoking Status: Never smoker Do You Dip or Chew Tobacco: No Hx Alcohol Use: Yes Alcohol type: wine and hard liquor alcohol intake frequency: other Hx Substance Use: No Testing Electrocardiogram Date: 04/16/18 NSR at 82bpm. LAD. Chest X-Ray Date: 04/16/18 Findings: + NAD
--- NOTE | 2018-06-18 23:21 | History and Physical Report ---
DATE OF ADMISSION: CHIEF COMPLAINT: Left knee infection, status post surgery ready for reimplantation. HISTORY OF PRESENT ILLNESS: The patient is a 72-year-old female who has been a long-term patient of mine from her left knee replacement which was done initially on 10/29/2012. She did quite well for the first three and a half years and then developed acute onset of pain and swelling in 04/2016. She did have a teeth cleaning about a week before that, but did take prophylactic antibiotics. She developed pain and swelling. We saw her and aspirated her knee which showed inflammatory fluid. It grew out methicillin sensitive staph and also had some gout in it. We took her to the Operating Room and did extensive irrigation, debridement and polyethylene exchange on 05/07/2016. She was treated with 6 weeks of I.V. antibiotics and oral antibiotics. She did quite well and her inflammatory parameters were decreasing. We slowly decreased her Keflex dose and when we swung from 2 Keflex a day to 1 Keflex a day about 2 weeks later, she developed increased pain, discomfort and swelling in her knee. We did increase her Keflex back, but she continued to have persistent pain, discomfort, swelling and developed some drainage from her knee anterior. We tried to treat this conservatively as she really did not want to have surgery initially, but she continued to have persistent problems, pain, discomfort and she eventually underwent resection arthroplasty and placement of antibiotics spacer on 04/26/2018. She has been treated with 6 weeks of I.V. antibiotics and now she has been off for about 2 weeks. She is doing well. Inflammatory parameters are decreasing and improving and her symptoms are improved. She is really pretty painless. She would now like to proceed with surgical revision. Her most recent sedimentation rate is now down to 40 and C-reactive protein is down to 0.47. PAST MEDICAL HISTORY: 1. Long-term diabetes. 2. Hypertension. 3. Elevated cholesterol. 4. Arthritis. 5. Kidney stones. 6. Anxiety. PAST SURGICAL HISTORY: Includes, 1. Left knee replacement done on 10/29/2012. 2. I, D and poly exchange on 05/07/2016. 3. Left knee resection arthroplasty and placement of antibiotic spacer on 04/26/2018. 4. Tubal ligation. 5. Sleep apnea surgery. ALLERGIES: MORPHINE, SULFA AND LATEX. CURRENT MEDICINES: Include, 1. Metformin 1000 mg twice a day. 2. Meloxicam. 3. Furosemide 10 mg. 4. Paroxetine 20 mg. 5. Lisinopril 15 mg. 6. Simvastatin 5 mg. 7. Potassium. 8. Iron gluconate. 9. Niacin. 10. Cinnamon. 11. Alprazolam. 12. Ondansetron. SOCIAL HISTORY: This patient is a 72-year-old female. She is from [place]. She works as a nurse. FAMILY HISTORY: Noncontributory. REVIEW OF SYSTEMS: Significant for diabetes. Denies any chest pain or shortness of breath. No evidence of deep venous thrombosis or pulmonary embolism. PHYSICAL EXAMINATION: GENERAL: The patient is a pleasant elderly female. She looks to be quite healthy. HEENT: Benign. NECK: Supple. No lymphadenopathy. LUNGS: Clear to auscultation. HEART: Has a regular rate and rhythm. ABDOMEN: Soft, nontender and nondistended. EXTREMITIES: Grossly neurovascularly intact except as follows. Examination of left knee reveals the patient walks quite well in the knee immobilizer. She has got a well-healed incision over the anteromedial side of her knee. She can do a good straight leg raise. Her range of motion is 0 to about 70 degrees. There is no instability. She is neurologically intact. X-RAYS: X-rays of left knee were reviewed. She has antibiotic spacer in place. Knee alignment looks good. No signs of problems. LABORATORY DATA: Her laboratories were reviewed. White cell count is normal. She continues to be anemic with hemoglobin of 10, but improved somewhat. Her sedimentation rate is down to 40 and C-reactive protein at 0.47. ASSESSMENT: This patient is a 72-year-old female status post a left knee replacement complicated by acute infection which recurred after tapering off antibiotics. She is now 2 months out from an antibiotic spacer placement with what looks to be an improved infection and would like to have her knee revised. PLAN: We are going to take her to the Operating Room and do a revision knee arthroplasty. The risks and benefits of this procedure were explained to the patient including but not limited to deep venous thrombosis, pulmonary embolism, , infection, neurological injury, vascular injury, bleeding problem, pain, limited range of motion, stiffness, failure to relieve symptoms, incomplete relief of symptoms, need for further surgery in the future, fracture, leg length inequality, nerve palsy and failure to resolve the infection. The patient understands and desires to proceed. Informed consent was obtained. We will likely keep her on some p.o. antibiotics for a period of time until the cultures are complete. We will have a hinged knee available in case she has got further destruction of her bone, but there is no indication that we will need that at this point. We talked about holding metformin in the morning of surgery. I will see her back 2 weeks post surgery. We will plan on deep venous thrombosis prophylaxis including thigh-high TEDs, sequential compression devices and aspirin. It is highly likely that she will need a blood transfusion based on her anemia. GRETTA
[~2018-06-20 07:46] MED LIST changes: -ACET-1138 PO; +ACETAMINOPHEN 500 MG TAB PO SCH; -ALPR0.25 PO; -ASPEC325 PO; +BUPIVACAINE 0.5 % 5 MG/1 ML PF 10ML VIAL ONE; +BUPIVACAINE LIPOSOME/PF 266 MG, BUPIVACAINE/EPINEPHRINE 50 ML, SODIUM CHLORIDE 0.9% 30 ... INFIL SCH; +CEFAZOLIN 2000MG 2,000 MG/15 ML SYR IV SCH; -CINN1CAP2 PO; +EPINEPHrine INJ 1 MG/ML AMP ONE; +FAMOTIDINE 20 MG TAB PO SCH; -FERR1TAB23 PO; -FERR324T PO; +GABAPENTIN 300 MG PO SCH; -HYDR25TA4 PO; -LISI10TA PO; +LR 500ML BOLUS, THEN 15ML/HR IV SCH; +LR 60ML/HR IV SCH; -METF-384 PO; +METOCLOPRAMIDE HCL 10 MG TABLET PO SCH; -NSNN50; -PARO20TA PO; -POTA99TA PO; +ROPIVACAINE 0.5% 5 MG/ML 30 ML VIAL ONE; -ROSU5TAB PO; -SITA25TA PO; +TRANEXAMIC ACID 1,000 MG **IV Intra-op IV SCH; -[UNRECOGNIZED DRUG - CODE] PO; -lasix; -mutivitamin PO
--- NOTE | 2018-06-20 09:06 | History & Physical Bridge Note ---
Date of Service June 20, 2018 History & Physical Bridge Note I have examined the patient, reviewed the History & Physical and in the interval since the performance of the History & Physical I have noted the following changes of clinical significance: no changes noted
[2018-06-20] MEDS ORDERED: PHENYLEPHRINE 100MCG/ML 5ML SYR IV PRN (09:22)
[2018-06-20] MEDS ORDERED: ATROPINE SULFATE 0.1 MG/ML 10ML SYR IV PRN (09:22)
[2018-06-20] MEDS ORDERED: MEPERIDINE HCL 25 MG/ML CARP IV PRN (09:22)
[2018-06-20] MEDS ORDERED: fentaNYL citrate 100 MCG/2 ML VIAL IV PRN (09:22)
[2018-06-20] MEDS ORDERED: ePHEDrine sulfate 50 MG/ML AMP IV PRN (09:22)
[2018-06-20] MEDS ORDERED: LABETALOL HCL IV 5 MG/ML 20ML IV PRN (09:22)
[2018-06-20] MEDS ORDERED: ONDANSETRON INJ 2 MG/ML 2 ML VIAL IV PRN ×2 (09:22→15:32)
[2018-06-20] MEDS ORDERED: LIDOCAINE HCL 2% 2 ML VIAL/AMP(20MG/ML) INFIL ONE (09:54)
[2018-06-20] MEDS ORDERED: PROPOFOL IV EMULSION 10 MG/ML 20 ML VIAL IV ONE (09:54)
[2018-06-20] MEDS ORDERED: MIDAZOLAM HCL 1 MG/ML 2ML VIAL ONE ×2 (09:54→12:11)
[2018-06-20] MEDS ORDERED: VANCOMYCIN HCL 1000MG/20ML VIAL ONE (10:42)
[2018-06-20] MEDS ORDERED: BACITRACIN INJ 50,000 UNIT VIAL ONE (10:43)
[2018-06-20] MEDS ORDERED: TOBRAMYCIN SULFATE 1,200 MG VIAL ONE (10:43)
[2018-06-20] MEDS ORDERED: BUPIVACAINE/EPINEPHRINE 0.25% 1:200,000 30 ML VIAL ONE (11:14)
[2018-06-20] MEDS ORDERED: SODIUM CHLORIDE 0.9% PF 50 ML VIAL ONE (11:15)
[2018-06-20] MEDS ORDERED: BUPIVACAINE LIPOSOME 1.3% 266 MG/20 ML VIAL ONE (11:16)
[2018-06-20] MEDS ORDERED: METOPROLOL TARTRATE 1 MG/ML VIAL IV ONE (12:38)
[2018-06-20] MEDS ORDERED: PHENYLEPHRINE 100MCG/ML 5ML SYR ONE (12:38)
[2018-06-20] MEDS ORDERED: ESMOLOL HCL INJ 10 MG/ML 10ML VIAL IV ONE (13:14)
--- NOTE | 2018-06-20 13:58 | Post Operative Brief Note ---
Immediate Post Op Note v1 Date of Surgery June 20, 2018 Pre & Post Diagnosis Operation Date: 06/20/18 10:25 Pre-Op Diagnosis: Left Total Knee Infection Post-Op Diagnosis: Left Total Knee Infection Procedure Operation Date: 06/20/18 10:25 Actual Procedures p Left Revision Total Knee Replacement with removal of Antibiotic Spacer Removal(Left) - Dioni Koenig MD Surgeon Dioni Koenig MD B[employer] Painter Yasmany, PAC Estimated Blood Loss 100 Findings Consistent with Post-Op Diagnosis Fluids 1700 cc Specimens Fluid culture X 2 Tissue Culture X 1 Drains Garcia Catheter Anesthesia Type Spinal MAC Complications none Disposition Accompanied Patient To Recovery: No Disposition: Recovery Room
[2018-06-20] MEDS ORDERED: PHENYLEPHRINE HCL 10 MG/ML VIAL ONE (14:10)
--- NOTE | 2018-06-20 14:27 | Anesthesiology Progress Note ---
Date of Service June 20, 2018 Anesthesia Post Procedure Vital Signs Vital Signs: Temp Pulse Pulse Resp BP Pulse Ox 06/20/18 14:20 99 H 16 140/79 100 06/20/18 14:10 96 H 16 144/85 H 100 06/20/18 14:02 37.7 C H 96 H 16 138/78 98 06/20/18 08:28 37.1 C 98 H 20 137/81 100 Notes Mental Status: alert / awake / arousable Patient Amnestic to Procedure: Yes Nausea / Vomiting: adequately controlled Pain: adequately controlled Airway Patency, RR, SpO2: stable & adequate BP & HR: stable & adequate Hydration State: stable & adequate Neuraxial Anesthesia: was administered and sensory block is resolving Anesthetic Complications: no major complications apparent and Pt Satisfied with anesthetic care Notes: The patient is awake and comfortable. Her vitals are at her baseline.
--- NOTE | 2018-06-20 14:36 | XRay Report ---
TWO VIEWS LEFT KNEE CLINICAL HISTORY: Postoperative examination. FINDINGS: AP and crosstable lateral portable views of the left knee are obtained. A left knee arthrop lasty is in near anatomic alignment. There has been undersurface remodeling of the patella. There are long tibial and femoral stems. No acute fracture is seen. There are expected postoperative changes a round the knee including skin clips, soft tissue edema, and subcutaneous gas. Atherosclerotic calcif ication is noted in the popliteal artery. IMPRESSION: Expected postoperative changes status post left knee arthroplasty. No acute fracture is s een. Electronically signed by: Fritz Bueno M.D. 06/20/2018 2:35 PM
[2018-06-20] MEDS ORDERED: CLOTRIMAZOLE/BETAMETHASONE CR 15 GM TUBE EXT PRN (15:32)
[2018-06-20] MEDS ORDERED: ALPRAZolam 0.25 MG TABLET PO PRN (15:32)
[2018-06-20] MEDS ORDERED: GLUCOSE 10 TABS/TUBE PO PRN (15:32)
[2018-06-20] MEDS ORDERED: BISACODYL 10 MG SUPP PR PRN (15:32)
[2018-06-20] MEDS ORDERED: GLUCOSE 40% GEL 15 GM TUBE PO PRN (15:32)
[2018-06-20] MEDS ORDERED: HYDROmorphone INJ 0.5 MG/0.5 ML SYR IV PRN (15:32)
[2018-06-20] MEDS ORDERED: SODIUM CHLORIDE 0.9% 1000ML 1,000 ML IV SCH (15:32)
[2018-06-20] MEDS ORDERED: ALUMINUM/MAGNESIUM SUSP 30 ML UDC PO PRN (15:32)
[2018-06-20] MEDS ORDERED: NALOXONE HCL 0.4 MG/1 ML VIAL/CARP IV PRN (15:32)
[2018-06-20] MEDS ORDERED: DEXTROSE 50% 50 ML SYRINGE IV PRN (15:32)
[2018-06-20] MEDS ORDERED: TRAMADOL HCL 50 MG TABLET PO PRN (15:32)
[2018-06-20] MEDS ORDERED: MAGNESIUM HYDROXIDE SUSP 30 ML UDC PO PRN (15:32)
[2018-06-20] MEDS ORDERED: METOCLOPRAMIDE HCL INJ 5 MG/ML 2 ML VIAL IV PRN (15:32)
[2018-06-20] MEDS ORDERED: CARBOHYDRATES FOR HYPOGLYCEMIA PO PRN (15:32)
[2018-06-20] MEDS ORDERED: PHARMACY GLYCEMIC MGMT CONSULT STA (15:32)
[2018-06-20] MEDS ORDERED: GLUCAGON FOR INJ 1 MG VIAL SQ PRN (15:32)
[2018-06-20] MEDS ORDERED: ONDANSETRON PO PRN (15:32)
[2018-06-20] MEDS ORDERED: PHARMACY GLYCEMIC MGMT CONSULT PRN (16:00)
[2018-06-20] MEDS: INSULIN ASPART 100 UNITS/ML 3 ML PEN SC SCH ×2 (18:53→21:39)
[2018-06-20] MEDS: FERROUS GLUCONATE 324 MG TAB PO SCH (18:55)
[2018-06-20] MEDS: ASCORBIC ACID 500 MG TAB PO SCH (18:55)
[2018-06-20] MEDS: KETOROLAC TROMETHAMINE 15 MG/ML VIAL IV SCH ×2 (18:56→23:53)
[2018-06-20] MEDS: CEFAZOLIN 1000MG 1,000 MG/7.5 ML SYR IV SCH (20:03)
[2018-06-20] MEDS ORDERED: TRANEXAMIC ACID 1,000 MG in 0.9 % SODIUM CHLORIDE 100 ML IV SCH (20:30)
[2018-06-20] MEDS ORDERED: FUROSEMIDE 20 MG TAB PO SCH (21:00)
[2018-06-20] MEDS ORDERED: IRON 28 MG PO SCH (21:00)
[2018-06-20] MEDS ORDERED: NON-FORMULARY MEDICATION (Ferrous Sulfate 325 MG) PO SCH (21:00)
[2018-06-20] MEDS ORDERED: CINNAMON BARK PO SCH (21:00)
[2018-06-20] MEDS ORDERED: LANTUS PER UNIT CHARGE SQ ONE (21:15)
--- NOTE | 2018-06-20 21:18 | Pharmacy Report ---
Glycemic Control Consultation - Date of Service June 20, 2018 - Scope Scope: Glycemic Pharmacist consulted by Dr Koenig on 06-20 for glycemic control and to write orders per [facility] inpatient glycemic control protocol - Objective Weight: 63.639 kg Accuchecks BSG (last 24hrs): 06/20/18 06/20/18 06/20/18 08:21 14:07 16:59 POC Glucose 143 H 161 H 94 06/20/18 20:41 POC Glucose 187 H - Recent Pertinent Medications Outpatient Anti-diabetic Regimen: * metformin 1 gm bid * A1c = 8.8 % [04-22-18] Risk Factors for Insulin Resistance: * Steroids: none in OR * Recent Surgery: POD 0 * Diet: T2DM - Assessment & Plan Assessment & Plan: ASSESSMENT: * 72 year old female now s/p total knee revision. PMH significant for htn, hld, anxiety. Managed at home on metformin. Most recent A1C 8.8% * BSGs post op trending up at [phone] this evening. Hyperglycemia likely related to stress from surgery * Will tighten CF/CR for this evening as BSGs continue to trend up. Spoke with nurse in regards to higher BSG this evening - reports patient not snacking in between meals PLAN FOR INPATIENT GLYCEMIC CONTROL: * Pt is maintained on oral antidiabetic agents as an outpatient * Oral agents are not recommended for inpatient use d/t drug interactions, changing PO intake, and difficulty titrating for acute hyper/hypoglycemia. ADA recommends re-initiating outpatient oral agents 1-2 days prior to discharge if/when appropriate if they were held on admission. * Will hold oral agents for admission and utilize SQ basal bolus insulin regimen which is the recommended regimen for inpatient glycemic control. * Will initiate weight based insulin dosing for insulin lenny patient and titrate based on BSG trends. * Basal insulin * Lantus 9 unit x 1 this evening (very conservative dose due to older age/small weight) * Bolus insulin * NovoLog per scale ACHS or Q6hrs while NPO * Goal Range: Low 120 mg/dL - High 160 mg/dL * Correction Factor: 30 mg/dL/unit * Nutritional / Prandial insulin per carb ratio of 1 unit per 10 grams CHO consumed * Please note that the plan above was derived based on current level of insulin resistance and hospital stress. These recommendations are appropriate for inpatient admission only. Plan of care upon discharge will need to be reassessed to avoid potential outpatient hypo/hyperglycemia. Thank you.
[2018-06-20] MEDS: DOCUSATE SODIUM 100 MG CAP PO SCH (21:24)
[2018-06-20] MEDS: ASPIRIN 81 MG ECTAB PO SCH (21:24)
[2018-06-20] MEDS: SENNA 8.6 MG TAB PO SCH (21:24)
[2018-06-20] MEDS: NIACIN 500 MG TAB PO SCH (21:25)
[2018-06-20] MEDS: ACETAMINOPHEN 500 MG TAB PO SCH (21:25)
[2018-06-20] MEDS: MULTIVITAMIN TAB PO SCH (21:25)
[2018-06-20] MEDS ORDERED: Nursing to Pharmacy Communication ONE (21:31)
--- NOTE | 2018-06-20 22:57 | Operative Report ---
DATE OF OPERATION: 06/20/2018 SURGEON: Dioni Koenig MD SLOPE RUNNER: BIRDIE Lynch PREOPERATIVE DIAGNOSES: Infected right knee replacement, status post antibiotic spacer and indicated for revision knee replacement. POSTOPERATIVE DIAGNOSES: Infected right knee replacement, status post antibiotic spacer and indicated for revision knee replacement. PROCEDURE: Right knee antibiotic spacer removal and revision total knee arthroplasty. COMPLICATIONS: None. ESTIMATED BLOOD LOSS: 100 mL FLUID REPLACEMENT: 1700 mL crystalloid fluid replacement. TOURNIQUET TIME: 111 minutes at 300 mmHg. ANESTHESIA: Spinal. DRAINS: None. SPECIMENS: 1. Joint fluid sent for culture, Gram stain, aerobic and anaerobic culture x2. 2. Right tissue synovium sent for tissue culture. OPERATIVE INDICATIONS: The patient is a 72-year-old female who underwent an uncomplicated total knee replacement on her left knee back in 2012. She did well for several years and then developed acute onset of pain and discomfort and swelling after a dental procedure. She was seen and had an irrigation and debridement and was treated with antibiotics for a period of time. Upon decrease in the dose of the antibiotics, she developed recurrent swelling in the knee and signs of infection. She then underwent resection arthroplasty and antibiotic spacer placement 2 months ago. Her inflammatory parameters including her sed rate and C-reactive protein have improved markedly. She has been off antibiotics for 2 weeks and continues to do well. She is indicated for revision knee replacement. OPERATIVE IMPLANTS: Operative implants consisted of: 1. A Biomet Vanguard 360 left femoral component, a size 62.5 with a 14 x 80 mm offset stem with a 2.5 mm offset and both a 5 mm medial and 5 mm lateral augments. Both augments are distal 2. Biomet size 63 Vanguard 360 tibial tray with a 12 x 80 offset stem with a 2.5 mm offset and a small cruciate wing. 3. An 18-mm posterior stabilized polyethylene insert. OPERATIVE PROCEDURE: The patient taken to the operating room, identified and placed on the operating table in supine position. All contact areas were appropriately padded. IV antibiotics were provided by anesthesia team. A spinal anesthetic had been implemented in the holding area. Garcia catheter was placed in sterile fashion. A left thigh tourniquet was then placed and left lower extremity was then prepped and draped in usual sterile fashion. Left leg was elevated and exsanguinated with Esmarch and tourniquet was placed at 300 mmHg. An anterior approach of the left knee was then performed through a longitudinal incision using the previous incision. Sharp dissection was carried through subcutaneous tissues down to the level of the extensor mechanism. A medial parapatellar arthrotomy incision was made. Some subperiosteal dissection was carried out medially. We did send some fluid off for stat Gram stain and anaerobic culture x2. I did a complete synovectomy of the medial and lateral gutters as well as the suprapatellar pouch. There was fairly minimal synovitis. There are no signs of residual infection. This tissue was sent off for tissue culture. I then exposed the knee joint. With the use of an osteotome, I did fracture cement antibiotic laden prosthesis and removed it without any difficulty. I did place a 1/8th inch pin through the tibial tubercle to hold the patella tendon. I first began preparing the tibia. I began reaming the tibia with a certified hand therapist beginning with a size 10 and progressing up to 12. We got pretty good fit at 12. I then made the proximal tibial cut and removed about 2 mm of bone from the most deficient aspect of the medial side. I then sized the tibia to a size 63. I used a 2.5 mm offset and prepared the proximal tibia. We then prepared the implant and placed it in the tibia and it fit nicely. Attention then drawn to the femur. The bone cement was chipped away and removed from the distal femur. I then entered the distal femur after removing trhe abx dowel. We bafgan with the 10 mm reamer and reamed up to 14. We got good fit at 14. I then sized the femur to a 62.5. The AP cutting block was pinned parallel to the epicondylar axis. It was pinned in place. I then made the anterior cut, anterior chamfer cut, posterior cut, posterior chamfer cuts. I did initially place the IM guide, which was 5 degree guide and cut the distal femur, removing an additional 5 mm from the most prominent side; therefore, indicating the need for 5-mm augments. Once The AP cutting guide was used, I then assembled implants for the notch cutting guide. We placed the implant and it fit nicely. I then secured this was with pin. I then made the box cut. The trochlear component was then added. I then trialed the knee and the 16 mm insert fit most appropriately. I elected not to resurface the patella due to the severe porosity of this and the thin stature and it was only about 10 mm thick and therefore the risk of fracture. We elected to place these implants. All trial implants were removed. I irrigated the wound extensively. We prepared all bone surfaces, get rid of all soft tissue. A double batch of Palacos G cement was mixed with an additional gram of vancomycin as well as tobramycin. A left size 62.5 posterior stabilized femoral component with two 5 mm distal augments along with a 14 x 80 mm offset stem was then impacted in position with cementing the metaphyseal component. A tibia size 63 tibial tray with a small cruciate wing, 2.5 mm offset, and a 12 x 80 offset stem was also cemented in place. All extraneous cement was removed. Knee was brought into full extension until cement hardened. We did just place the trial insert initially. Once the cement hardened, we examined the knee again and I elected to proceed with an 18 mm insert. The trial insert was removed. We examined the knee for cement again. The 18 mm insert was placed. The knee was then injected with 100 mL of a combination of 20 mL of Exparel, 30 mL of normal saline, 50 mL of 0.25% Marcaine with epinephrine. The patient did receive 1 g of tranexamic acid. The tourniquet was then let down for final tourniquet time of 111 minutes. Hemostasis was assured with the use of electrocautery. The wound was once again irrigated. Extensor mechanism was then closed with a combination of #1 PDS suture and #1 Vicryl suture in a [id number] fashion. Extensor mechanism was checked and found to be intact. The subcutaneous tissue then closed with 2-0 Dexon suture in buried interrupted fashion. Skin was closed with skin rik. Leg was then cleaned, dried and a sterile dressing of Xeroform, 4 x 4's, ABD pad foam, sterile cast padding and Nabeel bandage were applied. The patient then transferred to the recovery room in stable condition. The patient tolerated the procedure well with no complications. All needle and sponge counts were correct at the end of the operation. I attest to the content of the Intraoperative Record and any orders documented therein. Any exceptions are noted below. GRETTA
[2018-06-21] MEDS: POTASSIUM - ORDER AWAITING ACTION SCH ×2 (00:19→10:00)
[2018-06-21] MEDS: INSULIN ASPART 100 UNITS/ML 3 ML PEN SC SCH ×6 (00:39→21:24)
[2018-06-21] MEDS: CEFAZOLIN 1000MG 1,000 MG/7.5 ML SYR IV SCH ×3 (04:51→21:18)
[2018-06-21] MEDS: ACETAMINOPHEN 500 MG TAB PO SCH ×3 (04:52→21:18)
[2018-06-21] MEDS: KETOROLAC TROMETHAMINE 15 MG/ML VIAL IV SCH ×3 (04:52→18:15)
[2018-06-21] MEDS: DOCUSATE SODIUM 100 MG CAP PO SCH ×2 (07:32→18:14)
[2018-06-21] MEDS: FERROUS GLUCONATE 324 MG TAB PO SCH ×2 (07:32→18:15)
[2018-06-21] MEDS: ASCORBIC ACID 500 MG TAB PO SCH ×2 (07:33→18:15)
[2018-06-21] MEDS: PARoxetine HCl 20 MG TAB PO SCH (07:34)
[2018-06-21] MEDS: LISINOPRIL 5 MG TAB PO SCH (07:34)
[2018-06-21] MEDS: ROSUVASTATIN CALCIUM 5 MG TAB PO SCH (07:34)
[2018-06-21] MEDS: CALCIUM CARBONATE 1250MG TAB PO SCH (07:34)
[2018-06-21] MEDS: FUROSEMIDE 20 MG TAB PO SCH (07:35)
[2018-06-21] MEDS: MULTIVITAMIN TAB PO SCH ×2 (07:39→21:17)
[2018-06-21 07:42] LABS: Hematocrit (blood only) 26.2 % (37-47); Hemoglobin 8.6 g/dL (12.0-16.0); Mean Corpuscular Hgb Conc 32.8 g/dL (32-36); Mean Corpuscular Volume 80.1 fL (80-100); Mean Platelet Volume 9.1 fL (7.4-10.4); Platelet Count 277 K/uL (130-400); RDW Coefficient of Variation 16.2 % (11.5-14.5); RDW Standard Deviation 47.6 fL (36.4-46.3); Red Blood Count 3.27 M/uL (4.2-5.4); White Blood Count 7.83 K/uL (4.8-10.8)
--- NOTE | 2018-06-21 07:46 | Progress Note ---
DATE: 06/21/2018 SUBJECTIVE: A 72-year-old female postop day 1 from antibiotic spacer removal and revision total knee replacement. She is doing well. Pain is controlled. Denies any chest pain or shortness of breath. No bleeding problems. She did get little dizzy coming out of the restroom this morning, but feeling better now. No chest pain or shortness of breath associated with that. OBJECTIVE: VITAL SIGNS: Temperature 37.1. Vital signs stable. GENERAL: Physical examination reveals a pleasant elderly female. She is sitting up in her bed and looks quite comfortable, very optimistic. LUNGS: Clear to auscultation. HEART: Has a regular rate and rhythm. ABDOMEN: Soft, nontender, nondistended. EXTREMITIES: Grossly neurovascularly intact except as follows: Examination of the left lower extremity reveals the leg to be well aligned. She can do a good straight leg raise. She can dorsiflex and plantarflex her foot appropriately. She is neurologically intact. LABORATORY DATA: Labs are pending. ASSESSMENT: A 72-year-old female status post left knee revision with removal of antibiotic spacer and revision knee replacement. She is doing well. Pain is controlled. She is neurologically intact. Little bit of vasovagal episode this morning, but doing better. Her labs are still pending. She does have chronic anemia. PLAN: 1. DVT prophylaxis including thigh-high TEDs, SCDs, and aspirin twice a day. 2. PT/OT. Weight bear as tolerated. Left total knee protocol. 3. Pain control, doing pretty well with current pain regimen. 4. IV antibiotics. We are going to keep her on IV antibiotics until the cultures are back. We will likely treat her with a short course of p.o. antibiotics postoperatively until her sed rate and C-reactive protein show signs of significant improvements. 5. Disposition: She is going to be discharged to home once medically stable.
[2018-06-21 08:14] LABS: BUN Creatinine Ratio 23.2 (10-20); Calcium 8.2 mg/dl (8.5-10.1); Creatinine Clr Calc Pharmacy 45.7 ml/min; Est GFR (African American) 72.2; Est GFR (Non-African American) 62.3; Potassium 3.5 mmol/L (3.5-5.1)
--- NOTE | 2018-06-21 08:21 | Anesthesiology Progress Note ---
Date of Service June 21, 2018 Anesthesia Post Procedure Vital Signs Vital Signs: Temp Pulse Pulse Resp BP Pulse Ox 06/21/18 07:10 37.1 C 83 18 108/61 96 06/21/18 03:53 36.8 C 97 H 20 146/82 H 98 06/20/18 23:08 37.6 C H 106 H 20 149/77 H 94 06/20/18 20:18 38 C H 06/20/18 19:03 38.3 C H 105 H 18 151/81 H 94 06/20/18 18:02 37.9 C H 101 H 18 153/80 H 94 06/20/18 17:21 38.0 C H 93 H 18 152/86 H 100 06/20/18 16:35 37.4 C 93 H 18 136/65 100 06/20/18 15:52 36.9 C 89 16 130/74 100 06/20/18 15:25 37.1 C 91 H 18 125/77 99 06/20/18 15:00 96 H 22 117/76 94 06/20/18 14:49 37.3 C 89 14 130/71 95 06/20/18 14:40 37.3 C 90 17 130/71 95 06/20/18 14:30 93 H 13 129/75 100 06/20/18 14:20 99 H 16 140/79 100 06/20/18 14:10 96 H 16 144/85 H 100 06/20/18 14:02 37.7 C H 96 H 16 138/78 98 06/20/18 08:28 37.1 C 98 H 20 137/81 100 Notes Mental Status: alert / awake / arousable and participated in evaluation Nausea / Vomiting: adequately controlled Pain: adequately controlled Airway Patency, RR, SpO2: stable & adequate BP & HR: stable & adequate Hydration State: stable & adequate Neuraxial Anesthesia: sensory block resolved Anesthetic Complications: Pt Satisfied with anesthetic care
--- NOTE | 2018-06-21 09:28 | Pharmacy Report ---
Pharmacy Glycemic Short Note 2 - Date of Service June 21, 2018 - Glycemic Short BSG Results (Last 24 hours): 06/20/18 06/20/18 06/20/18 14:07 16:59 20:41 Glucose POC Glucose 161 H 94 187 H 06/20/18 06/21/18 06/21/18 23:51 03:52 07:05 Glucose POC Glucose 145 H 122 H 126 H 06/21/18 06/21/18 07:18 08:15 Glucose 135 H POC Glucose 156 H OUTPATIENT ANTIDIABETIC REGIMEN: * Metformin 1gm PO BID * A1c = 8.8% 04/22/18 ASSESSMENT: * Type 2 diabetic, now POD # 1s/p TKA revision w/ ABX spacer placement * Patient is doing well this AM other than possible vaso-vagal episode reported this AM * Glycemic control acceptable over the last 24 hrs * Metformin remains on hold this AM - will resume this med in the near future if renal fxn and PO intake permit * Fasting BSG 156 this AM w/ 9 units Lantus on board - will continue to give low-dose Lantus while admitted * Novolog CF and CR are reasonable starting doses, will follow BSG pattern today and adjust if necessary PLAN FOR INPATIENT GLYCEMIC CONTROL: * Hold outpatient oral diabetes medications (metformin). May consider restarting tomorrow. * Basal insulin (slight dose increase) * Lantus 10 units Q HS * Bolus insulin (slight dose increase) * NovoLog per scale ACHS or Q6hrs while NPO * Goal Range: Low 110 mg/dL - High 140 mg/dL * Correction Factor: 30 mg/dL/unit * Nutritional / Prandial insulin per carb ratio of 1 unit per 10 grams CHO consumed PLAN FOR DISCHARGE: * A1c reflects inadequate control w/ current out-pt regimen. Given current infxn and need for adequate diabetic management post-op, she will likely need the addition of basal insulin on discharge to help attain glycemic targets.
[2018-06-21] MEDS: ASPIRIN 81 MG ECTAB PO SCH ×2 (10:03→21:17)
[2018-06-21] MEDS: SENNA 8.6 MG TAB PO SCH (18:14)
[2018-06-21] MEDS ORDERED: LANTUS PER UNIT CHARGE SQ SCH (21:00)
[2018-06-21] MEDS ORDERED: POTASSIUM CHLORIDE 10 MEQ TABCR PO SCH (21:00)
[2018-06-21] MEDS: NIACIN 500 MG TAB PO SCH (21:17)
[2018-06-22] MEDS: KETOROLAC TROMETHAMINE 15 MG/ML VIAL IV SCH ×2 (00:08→06:14)
[2018-06-22] MEDS: CEFAZOLIN 1000MG 1,000 MG/7.5 ML SYR IV SCH (04:30)
[2018-06-22] MEDS: ACETAMINOPHEN 500 MG TAB PO SCH (06:14)
[2018-06-22 06:17] LABS: Basophils # (auto) 0.03 K/uL (0-0.2); Basophils % (auto) 0.4 %; Eosinophils # (auto) 0.91 K/uL (0-0.5); Eosinophils % (auto) 11.4 %; Hematocrit (blood only) 27.3 % (37-47); Hemoglobin 8.7 g/dL (12.0-16.0); Immature Granulocytes # (auto) 0.02 K/uL (0.00-0.02); Immature Granulocytes % (auto) 0.3 %; Lymphocytes # (auto) 1.34 K/uL (1.2-3.4); Lymphocytes % (auto) 16.8 %; Mean Corpuscular Hgb Conc 31.9 g/dL (32-36); Mean Corpuscular Volume 78.7 fL (80-100); Monocytes # (auto) 0.72 K/uL (0.11-0.59); Neutrophils # (auto) 4.97 K/uL (1.4-6.5); Neutrophils % (auto) 62.1 %; Platelet Count 277 K/uL (130-400); RDW Coefficient of Variation 16.2 % (11.5-14.5); RDW Standard Deviation 46.8 fL (36.4-46.3); Red Blood Count 3.47 M/uL (4.2-5.4); White Blood Count 7.99 K/uL (4.8-10.8)
[2018-06-22 06:49] LABS: RBC Morphology Unremarkable
[2018-06-22] MEDS: ASCORBIC ACID 500 MG TAB PO SCH (07:26)
[2018-06-22] MEDS: LISINOPRIL 5 MG TAB PO SCH (07:26)
[2018-06-22] MEDS: DOCUSATE SODIUM 100 MG CAP PO SCH (07:27)
[2018-06-22] MEDS: FERROUS GLUCONATE 324 MG TAB PO SCH (07:27)
[2018-06-22] MEDS: CALCIUM CARBONATE 1250MG TAB PO SCH (07:27)
[2018-06-22] MEDS: ROSUVASTATIN CALCIUM 5 MG TAB PO SCH (07:28)
[2018-06-22] MEDS: ASPIRIN 81 MG ECTAB PO SCH (07:28)
[2018-06-22] MEDS: FUROSEMIDE 20 MG TAB PO SCH (07:28)
[2018-06-22] MEDS: PARoxetine HCl 20 MG TAB PO SCH (07:29)
[2018-06-22] MEDS: MULTIVITAMIN TAB PO SCH (07:30)
[2018-06-22] MEDS: INSULIN ASPART 100 UNITS/ML 3 ML PEN SC SCH (07:32)
--- NOTE | 2018-06-22 08:59 | Progress Note ---
DATE: 06/22/2018 SUBJECTIVE: A 72-year-old female postop day 2 from a left revision knee arthroplasty. She is doing well. Pain is controlled. Therapy is going well. No chest pain or shortness of breath. Not feeling dizzy or lightheaded. OBJECTIVE: VITAL SIGNS: Temperature 37.1. Vital signs stable. GENERAL: Physical examination reveals a pleasant elderly female. She was walking in the hallway with a therapist when I visited her today. She is walking quite well. EXTREMITIES: Examination of the left leg reveals the dressing to be clean, dry and intact. Calf is soft and supple. She is neurologically intact. LABORATORY DATA: Hemoglobin 8.7. Hematocrit 27.3. Culture results are no growth to date. ASSESSMENT: A 72-year-old female postop day 2 from a left revision knee arthroplasty and removal of antibiotic spacer, doing well. Pain is controlled. Therapy is going well. She is anemic, but asymptomatic. PLAN: 1. DVT prophylaxis including thigh-high TEDs, SCDs, and aspirin twice a day. 2. PT/OT. Weight bear as tolerated. Left total knee protocol. 3. Pain control, doing well with current pain regimen. 4. Antibiotic management. We are going to keep her on antibiotics until her cultures are negative. We will discharge on some p.o. antibiotics. 5. Disposition: Plan to discharge to home and she is going to do own therapy.
--- NOTE | 2018-06-23 14:16 | Discharge Summary ---
Date of Service June 27, 2018 Discharge Data Consultations 06/20/18 15:32 Consult Case Management - Discharge Planning Routine Procedures Performed Operation Date: 06/20/18 10:25 Actual Procedures p Left Revision Total Knee Antibiotic Spacer Removal(Left) - Dioni Koenig MD
--- NOTE | 2018-06-26 15:58 | Discharge Summary ---
ADMITTING PHYSICIAN AND SURGEON: Dr. Dioni Koenig. ADMITTING DIAGNOSIS: Infected right knee replacement, status post antibiotic spacer. PROCEDURE PERFORMED: Right knee antibiotic spacer removal and revision total knee arthroplasty. SECONDARY DIAGNOSES: Diabetes, hypertension, elevated cholesterol, arthritis, kidney stones and anxiety. CONSULTS: None obtained. HISTORY AND PHYSICAL EXAMINATION: Well documented in patient's chart. HOSPITAL COURSE: The patient was admitted on 06/20/2018 underwent the above procedure. She tolerated the procedure well. There were no complications. She was transferred to the PACU and later to the orthopedic floor for further care. She was given Ancef for antibiotic prophylaxis. She had intraoperative cultures done which all showed no growth. She was given FAVIOLA stockings, SCDs and aspirin for DVT prophylaxis. Hemoglobin, hematocrit and vital signs were monitored during her hospital stay and remained stable. She had some anemia with the hemoglobin down to 8.7, did not require any blood transfusions. There were no complications during her hospital stay. By postoperative day 2, she was tolerating a diabetic diet. Pain was controlled with oral pain medicine. She was participating in physical therapy. On postop day 2, she was discharged home. She was given printed discharge instructions including new prescriptions for extra strength Tylenol, aspirin and tramadol. The IV antibiotics were discontinued and she was also discharged on Keflex orally. She can continue her home medications with the exception of her home doses of Tylenol and aspirin which were changed. Continue physical therapy, weightbearing as tolerated, FAVIOLA stockings. Follow up approximately 2 weeks postoperatively or sooner if there any problems or concerns.
== END 2018-06-22 11:04 | disposition home or self-care (01) | DRG 468 ==
LOC: ASU 07:46 → 3E 14:08